=== PATIENT | male | born 1995 | race Caucasian/White ===

== ENCOUNTER 2019-10-29 13:20 | Emergency (ER) | payer MEDICAID, OTHER ==
[~2019-10-29] VITALS: Ht 182.9 cm; Wt 104.5 kg
[2019-10-29 13:22] VITALS: BP 140/94
== END 2019-10-29 15:17 | disposition home or self-care (01) ==
LOC: ER 13:21
DX: F22 Delusional disorders (principal); R56.9 Unspecified convulsions; F17.200 Nicotine dependence, unspecified, uncomplicated
CPT/HCPCS: 99283

== ENCOUNTER 2019-11-01 19:06 | Inpatient (IN) | payer MEDICAID, OTHER ==
[~2019-11-01] VITALS: Ht 188 cm; Wt 116.4 kg
[2019-11-01] MEDS ORDERED: acetaminophen 325mg tablet PO PRN ×2 (21:40)
[2019-11-01] MEDS ORDERED: LORazepam 1 MG tablet PO PRN (21:40)
[2019-11-01] MEDS ORDERED: mag hydrox/Alum hydrox/simeth 30ml oral suspension PO PRN (21:40)
[2019-11-01] MEDS ORDERED: hydrOXYzine 25 MG tablet PO PRN (21:40)
[2019-11-01] MEDS ORDERED: NICOTINE POLACRILEX 2 MG LOZENGE BC PRN (21:40)
--- NOTE | 2019-11-01 21:53 | NUR ---
Admission Note: Pt was placed on 5150 for Grave Disability after he was found running down [facility] fully nude. He stated to the police that he has "schizophrenia and is not taking his medications." He also stated, "I'm being followed by the navy and contractors by frequency waves and satellite waves." Pt was brought from [facility] to [facility] at 2140. Pt was oriented to the unit, given clean scrubs and had his belongings inventoried. Pt's skin check was completed by 2 RN's, pt has blisters bilaterally to bottom of feet.
[2019-11-01 22:10] VITALS: BP 132/96
[2019-11-02 08:00] VITALS: BP 116/61
[2019-11-02] MEDS ORDERED: NO HOME MEDS (10:17)
--- NOTE | 2019-11-02 12:15 | NUR ---
Nursing Progress Note: Legal hold: 5150 Client on involuntary status for GC. Report received from nurse with use of SBAR. Why are they here: Pt was placed on 5150 for Grave Disability after he was found running down [address] [place] fully nude. He stated to the police that he has "schizophrenia and is not taking his medications." He also stated, "I'm being followed by the navy and contractors by frequency waves and satellite waves." Pt was brought from [facility] to [facility] at 2140. Pt was oriented to the unit, given clean scrubs and had his belongings inventoried. Pt's skin check was completed by 2 RN's, pt has blisters bilaterally to bottom of feet. Assessment What has happened this shift: Patient was asleep at change of shift and up for breakfast. Patient stays in his room but is pleasant. RN asked what brought him here to the hospital. Patient states bluntly "nudity". RN asked what he was doing and patient states "making a statement." RN asked what statement was he making and patient couldn't answer that question. Patient denies suicidal/homicidal ideation. Patient also denies hearing voices and denies visual hallucinations. RN asked patient if he takes medication. Patient states "No, it's against my adventist." RN asked patient what was his adventist. Patient states "My body is a holy worship and I don't want medication." Patient took several long naps in his room. S/I, H/I: Denies A/VH: Denies ADL's: Independent Group attendance:N/A Were meds taken: None Any med S/E: None reported or observed Mental Status Exam Appearance: Clean, Large man with messy hair wearing green scrubs. Eye contact: Direct Behavior: Polite, isolative Speech: Clear. Normal rate/volume Mood: Euthymic Affect: flat Thought process: Disorganized Thought Content: Not wanting medication Cognition: disorganized Insight: poor Judgment: poor Interventions PRN's used: None Therapeutic interventions: 1:1 therapeutic assessment, maintained safe therapeutic milieu, provided active listening with positive reinforcement, medication administration/education/monitoring as needed; Q15 safety checks. Restraints/seclusion/emergency medication: N/A Justification of continued inpatient treatment: Patient is unable to formulate a plan to safely meet his basic needs of food, clothing, [place] [facility] r/t his mental health. Patient does not have a good safety plan for discharge at this time.
[2019-11-02 19:30] VITALS: BP 123/63
--- NOTE | 2019-11-03 00:30 | NUR ---
Nursing Progress Note: Legal hold: 5150 for grave disability Client on an involuntary hold for being gravely disabled Report received from Luther SEVILLA with use of SBAR Why are they here: Pt was placed on 5150 for Grave Disability after he was [facility] fully nude. He stated to the police that he has "schizophrenia and is not taking his medications." He also stated, "I'm being followed by the navy and contractors by frequency waves and satellite waves." Assessment What has happened this shift: The patient was isolative to his room and was polite when approached for the evening assessment. The patient stated that he felt mentally "okay" He denies that he has ever been in a psychiatric facility. When asked what his psychiatric diagnosis was he replied, "none" He then stated that people in general are being targeted by sonars then added, "At least a dozen people have me this" He stated that he has been traveling around. 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 Were meds taken: The patient stated he has no intention of taking psychiatric medications. Any med S/E; NA Mental Status Exam Appearance: Appears stated age but disheveled Eye contact: sporadic Behavior: guarded and isolative. Declined to allow RN to listen to his lungs but did answer assessment questions Speech: normal rate and volume Mood: anxious Affect: blunted Thought process: disorganized psychotic thought process Thought Content: delusional thoughts about satellites Cognition: oriented and alert Insight: very poor Judgment: very poor Interventions PRN's used: refused Therapeutic interventions: One to one with the patient to build therapeutic rapport and to assess for the severity of disordered thoughts. Assessed the patient's ability to provide for self care if he were to be discharged from the inpatient unit. Restraints/seclusion/emergency medication: Justification of Continued Inpatient Treatment: The patient is unable to formulate a realistic plan for food, correction or clothing at this time. He presents as being unable to navigate the homeless services provided in the community.
[2019-11-03 08:18] VITALS: BP 138/54
--- NOTE | 2019-11-03 14:30 | NUR ---
Nursing Progress Note: Legal hold: 5150 Client on involuntary status for GC. Report received from nurse with use of SBAR. Why are they here: Pt was placed on 5150 for Grave Disability after he was found running down [address] [place] fully nude. He stated to the police that he has "schizophrenia and is not taking his medications." He also stated, "I'm being followed by the navy and contractors by frequency waves and satellite waves." Pt was brought from [facility] to [facility] at 2140. Pt was oriented to the unit, given clean scrubs and had his belongings inventoried. Pt's skin check was completed by 2 RN's, pt has blisters bilaterally to bottom of feet. Assessment What has happened this shift: Patient was asleep at change of shift and up before breakfast. Patient stays in his room but is pleasant. Patient was found pacing in his room and moving his hand in a circular motion. Patient appears anxious but denies being anxious and does not want any medication. Patient denies suicidal/homicidal ideation. Patient denies hearing voices and spoke about a satellite but didn't elaborate. Patient appeared anxious again in the community room but denied and refused any medication. S/I, H/I: Denies A/VH: Denies ADL's: Independent Group attendance:N/A Were meds taken: None Any med S/E: None reported or observed Mental Status Exam Appearance: Clean, Large man with messy hair wearing green scrubs. Eye contact: Direct Behavior: Polite, isolative Speech: Clear. Normal rate/volume Mood: Euthymic Affect: flat Thought process: Disorganized Thought Content: Not wanting medication Cognition: disorganized with delusional thinking Insight: poor Judgment: poor Interventions PRN's used: None Therapeutic interventions: 1:1 therapeutic assessment, maintained safe therapeutic milieu, provided active listening with positive reinforcement, medication administration/education/monitoring as needed; Q15 safety checks. Restraints/seclusion/emergency medication: N/A Justification of continued inpatient treatment: Patient is unable to formulate a plan to safely meet his basic needs of food, clothing, long-term r/t his mental health. Patient does not have a good safety plan for discharge at this time.
[2019-11-03 19:00] VITALS: BP 141/87
--- NOTE | 2019-11-04 00:29 | NUR ---
Nursing Progress Note: Legal hold: 5150 for grave disability Client on an involuntary hold for being gravely disabled Report received from HUBERT Valenzuela with use of SBAR Why are they here: Pt was placed on 5150 for Grave Disability after he was found running down [facility] fully nude. He stated to the police that he has "schizophrenia and is not taking his medications." He also stated, "I'm being followed by the navy and contractors by frequency waves and satellite waves." Assessment What has happened this shift: Pt was in community room during shift change. Took pictures of pts feet, pictures are in his chart. He has blisters on both feet. He does not report any pain from these. When asked pt where he was getting them from, he states that its from not taking care of his feet. Pt was cooperative during 1:1 physical assessment, although answered questions minimally and not elaborating. Denies any AV/H. When asked if he had anxiety or depression pt denied. However, he did appear to be anxious. When asked if he would take medications if they were ordered he states I dont believe in medications that way. That is just my mosque belief. My body is my amish. He also states that he never took any medications at home. Pt denies any AV/H. Pt continued to pace the isles while making different movements with his arms and hands. He spent some more time in community room before returning to his room and going to sleep. S/I, H/I: Denies A/VH: Denies but pt does appear to be internally preoccupied ADL's: Independent Were meds taken: None taken, pt states he does not believe in taking medications Any med S/E; NA Mental Status Exam Appearance: Wearing green scrubs, somewhat disheveled, feet were dirty from not wearing any socks and walking barefoot on the unit Eye contact: Makes minimal eye contact, averted gaze Behavior: Isolative, guarded, animated with body gestures Speech: normal rate, rhythm and volume, minimal Mood: anxious Affect: blunted Thought process: disorganized Thought Content: Not wanting to take any meds, delusional thoughts Cognition: Alert and oriented X3 Insight: Poor Judgment: Poor Interventions PRN's used: None Therapeutic interventions: One to one with the patient to build therapeutic rapport and to assess for the severity of disordered thoughts. Assessed the patient's ability to provide for self care if he were to be discharged from the inpatient unit. Restraints/seclusion/emergency medication: N/A Justification of Continued Inpatient Treatment: The patient is unable to formulate a realistic plan for food, prison or clothing at this time. He presents as being unable to navigate the homeless services provided in the community.
--- NOTE | 2019-11-04 01:53 | NUR ---
Nursing note: No MRSA swab obtained from pt upon admission. Please obtain one during the day.
[2019-11-04 07:45] VITALS: BP 114/64
--- NOTE | 2019-11-04 12:10 | NUR ---
Initial: Pt admitted with psychosis. Currently on a regular diet documented with 75-100% PO intake meeting nutrient needs. Moderate LBM 11/02. No edema or wounds. No nutrition diagnosis at this time. Will continue to follow. Recommendations: 1) Continue regular diet 2) Bowel care PRN 3) Wt per rx Addendum: 11/04/19 at [address] Amended: Links added.
--- NOTE | 2019-11-04 14:50 | NUR ---
Nursing Progress Note: Legal hold: 5149 for grave disability Client on an involuntary hold for being gravely disabled Report received from HUBERT Holley with use of SBAR Why are they here: Pt was placed on 5150 for Grave Disability after he was found running down [facility] fully nude. He stated to the police that he has "schizophrenia and is not taking his medications." He also stated, "I'm being followed by the navy and contractors by frequency waves and satellite waves." Assessment What has happened this shift: Patient was lying in bed awake upon first interaction. States he is doing okay. When asked why he is here, states The design printer balloon brought me, when asked why he states You would have to ask him. C/O headache and was offered tylenol, replied I dont take medications, I am okay. Cooperative with physical assessment, no scheduled medications ordered at this time. Patient was up in community room, isolating, watching TV. When approached jumped suddenly when called by name. Actually appeared to be frightened, but would not discuss. S/I, H/I: Denies A/VH: Denies Sleep: 6 hours ADL's: Independent Were meds taken: I dont take medications Any med S/E; NA Mental Status Exam Appearance: unkept, wearing unit green scrubs Eye contact: avoidant Behavior: guarding, quiet Speech: WNL Mood: withdrawn Affect: blunted Thought process: difficult to determine, speaks minimally Thought Content: Not wanting to take any meds, denying psychiatric history Cognition: Alert and oriented X3 Insight: Poor Judgment: Poor Interventions PRN's used: None Therapeutic interventions: One to one with the patient to build therapeutic rapport and to assess for the severity of disordered thoughts. Assessed the patient's ability to provide for self care if he were to be discharged from the inpatient unit. Restraints/seclusion/emergency medication: N/A Justification of Continued Inpatient Treatment: The patient is unable to formulate a realistic plan for food, nursing home or clothing at this time. He presents as being unable to navigate the homeless services provided in the community.
--- NOTE | 2019-11-05 00:18 | NUR ---
Nursing Progress Note: Legal hold: 5150 for grave disability Client on an involuntary hold for being gravely disabled Report received from HUBERT Valenzuela with use of SBAR Why are they here: Pt was placed on 5150 for Grave Disability after he was found running down [facility] fully nude. He stated to the police that he has "schizophrenia and is not taking his medications." He also stated, "I'm being followed by the navy and contractors by frequency waves and satellite waves." Assessment What has happened this shift:Pt was in TV room during shift change. Appeared to be calm. Pt requested to take a shower. Cleaned and applied Neosporin to his blisters bilaterally. He denies any symptoms and remained isolative to his room most of the evening. When asked what his plans were he states im just waiting for my paperwork to be completed." Asked pt if he had a place to go to but he states that he doesn't but also denies being homeless. He was cooperative during 1: 1 physical assessment but however does not engage in conversation and answers most questions with a nope Does not elaborate if asked. He continues to make different gestures with his hand as if he is responding to internal stimuli. Later on pt was observed sitting in his bed rocking back and forth. When asked if he was doing okay, he states that he is just hungry. Snack was provided. Will continue to monitor. S/I, H/I: Denies A/VH: Denies but pt does appear to be internally preoccupied ADL's: Independent, Were meds taken: None taken, pt refused all medication offered Any med S/E; NA Mental Status Exam Appearance: Wearing green scrubs, somewhat disheveled. Took a shower today Eye contact: Makes minimal eye contact Behavior: Isolative, guarded, mostly cooperative, does not socialize Speech: normal rate, rhythm and volume, minimal Mood: Appears anxious Affect: blunted Thought process: Circumstantial Thought Content: Not wanting to take any meds, snacks Cognition: Alert and oriented X3 Insight: Poor Judgment: Poor Interventions PRN's used: None Therapeutic interventions: One to one with the patient to build therapeutic rapport and to assess for the severity of disordered thoughts. Assessed the patient's ability to provide for self care if he were to be discharged from the inpatient unit. Restraints/seclusion/emergency medication: N/A Justification of Continued Inpatient Treatment: The patient is unable to formulate a realistic plan for food, [facility] or clothing at this time. He presents as being unable to navigate the homeless services provided in the community.
[2019-11-05 07:22] VITALS: BP 128/77
[2019-11-05 08:37] LABS: HEMOGLOBIN A1C 5.5 % (4.5-6.2)
[2019-11-05 08:52] LABS: CHOL/HDL RATIO 4.6 (0.00-4.99); CHOLESTEROL 158 MG/DL (0-200); HDL CHOLESTEROL 34 MG/DL (35-60); LDL CHOLESTEROL 113 MG/DL (50-100); TRIGLYCERIDES 81 MG/DL (20-135)
--- NOTE | 2019-11-05 17:32 | NUR ---
Nursing Progress Note: Legal hold: 515 for grave disability Client on an involuntary hold for being gravely disabled Report received from HUBERT Willett with use of SBAR Why are they here: Pt was placed on 5150 for Grave Disability after he was found running down [facility] fully nude. He stated to the police that he has "schizophrenia and is not taking his medications." He also stated, "I'm being followed by the navy and contractors by frequency waves and satellite waves." Assessment What has happened this shift: Pt was up at beginning of shift walking the halls. He is quiet and guarded but pleasant. He paced halls and was carrying his book at one point in the sanches reading while he walked. He did not go out to the patio with the group and stated he just didnt feel like it. He denies SI/HI/AH/VH. However he was responding to internal stimuli. He is calm and smiles while he talks with RN during 1:1 but his answers are very quick and short. If questioned further he states I dont know. He showered and placed abx ointment to bilateral feet blisters. He was up in TV room in the afternoon. S/I, H/I: Pt Denies A/VH: Pt Denies but was responding to internal stimuli ADL's: Independent Were meds taken: Pt meds are all PRN, he did not request anything during day shift Any med S/E; None Mental Status Exam Appearance: Took shower on day shift. Wearing green unit scrubs and non skid socks. Hair combed. Eye contact: Direct Behavior: Cooperative, pleasant but isolative. Speech: WNL Mood: Calm but guarded. Affect: Congruent to mood Thought process: Linear Thought Content: Pt does not want to talk. Limited answers. States hes doing fine. Cognition: Alert and oriented X3 Insight: Poor Judgment: Poor Interventions PRN's used: None Therapeutic interventions: One to one with the patient to build therapeutic rapport and to assess for the severity of disordered thoughts. Assessed the patient's ability to provide for self care if he were to be discharged from the inpatient unit. Restraints/seclusion/emergency medication: N/A Justification of Continued Inpatient Treatment: The patient is unable to formulate a realistic plan for food, [place] [facility] or clothing at this time. He presents as being unable to navigate the homeless services provided in the community.
--- NOTE | 2019-11-05 20:17 | NUR ---
REFUSED PM VS.
--- NOTE | 2019-11-06 00:13 | NUR ---
Nursing Progress Note: Legal hold: 5150 for grave disability Client on an involuntary hold for being gravely disabled Report received from HUBERT Valenzuela with use of SBAR Why are they here: Pt was placed on 5150 for Grave Disability after he was found running down [facility] fully nude. He stated to the police that he has "schizophrenia and is not taking his medications." He also stated, "I'm being followed by the navy and contractors by frequency waves and satellite waves." Assessment What has happened this shift: Pt was in TV room during shift change sitting in the corner and stayed here for quite some time. Later on he was observed pacing the halls. Refused to have his vital signs taken by PCT and this RN. He was cooperative for 1:1 physical assessment and allowed for this RN to clean his feet and apply antibiotic ointment. He denies all symptoms even though he appears very anxious and also appears to be responding to internal stimuli. Does not engage in conversation and does not socialize with other patients or staff in the unit. When offered medication for anxiety, pt states no thank you, my body is my restorationist. Pt continues to pace the halls but did ask for a snack before going to sleep. S/I, H/I: Denies A/VH: Denies but pt does appear to be internally preoccupied ADL's: Independent, Were meds taken: None taken, pt refused all medication offered Any med S/E; NA Mental Status Exam Appearance: Wearing green scrubs, somewhat disheveled. Took a shower today Eye contact: Makes minimal eye contact Behavior: Isolative, guarded, mostly cooperative and calm, does not socialize Speech: normal rate, rhythm and volume, minimal. Mood: Appears anxious and somewhat paranoid Affect: Constricted Thought process: Circumstantial Thought Content: Snacks, his feet Cognition: Alert and oriented X3 Insight: Poor Judgment: Poor Interventions PRN's used: None Therapeutic interventions: One to one with the patient to build therapeutic rapport and to assess for the severity of disordered thoughts. Assessed the patient's ability to provide for self care if he were to be discharged from the inpatient unit. Restraints/seclusion/emergency medication: N/A Justification of Continued Inpatient Treatment: The patient is unable to formulate a realistic plan for food, [facility] or clothing at this time. He presents as being unable to navigate the homeless services provided in the community.
[2019-11-06 08:00] VITALS: BP 124/84
--- NOTE | 2019-11-06 15:56 | NUR ---
Nursing Progress Note: Legal hold: 5150 for grave disability Client on an involuntary hold for being gravely disabled Report received from HUBERT Willett with use of SBAR Why are they here: Pt was placed on 5150 for Grave Disability after he was found running down [facility] fully nude. He stated to the police that he has "schizophrenia and is not taking his medications." He also stated, "I'm being followed by the navy and contractors by frequency waves and satellite waves." Assessment What has happened this shift: Pt seen pacing in his room at the start of shift. During one on one assessment encouraged pt to take medications as which time he told this casualty underwriter, per my pt advocate you have no right to discuss medications with me nor do you have the right to advocate for me to take them. Then he proceeded with now can you leave my room? He participated in group by going outside with the others. After lunch and group he went back to his room and laid on the bed for the rest of the shift. S/I, H/I: Denies A/VH: Denies ADL's: Independent Were meds taken: Meds are all PRN he did not request any meds this shift Any med S/E; N/A Mental Status Exam Appearance: Pt is a tall young man wearing green hospital scrubs and non-skid socks Eye contact: Direct Behavior: Cooperative; direct Speech: clear and audible Mood: Guarded Affect: Congruent to mood Thought process: Linear Thought Content: Limited answers Cognition: A/O x 3 Insight: Poor Judgment: Poor Interventions PRN's used: None Therapeutic interventions: Provided therapeutic communication w/active listening, medication education, administration, and monitoring for effects, one to one with the patient to assess severity of thought disorder, and Q15 min. safety checks. Justification of Continued Inpatient Treatment: The patient is unable to formulate a realistic plan for food, jail or clothing at this time. He presents as being unable to navigate the homeless services provided in the community.
[2019-11-06 19:21] VITALS: BP 136/83
--- NOTE | 2019-11-07 00:33 | NUR ---
Nursing Progress Note: Legal hold: 5249 for grave disability Client on an involuntary hold for being gravely disabled Report received from HUBERT Valenzuela with use of SBAR Why are they here: Pt was placed on 5150 for Grave Disability after he was found running down [facility] fully nude. He stated to the police that he has "schizophrenia and is not taking his medications." He also stated, "I'm being followed by the navy and contractors by frequency waves and satellite waves." Assessment What has happened this shift: Pt was pacing the [facility] during shift change, appeared to be internally preoccupied. Pt kept to himself but appeared very tense. Pt requested to take a shower an spent quite some time in there until he was instructed to come out. Pt sounded like he was talking to someone but this RN was not able to make out what he was saying. He was cooperative during 1:1 physical assessment and also agreed for this RN apply antibiotic ointment. When asked if he had any pain in his feet, he states that they actually did hurt pretty bad and states that they have gotten worse since he got here. Offered pt medication for the pain after discussing this might be beneficial for him. He states "maybe I will take something." But then later on changed his mind. When asked pt why he did not want to take any medications, he states "when I was younger I used to have seizures and the doctors gave me some medications and they made me very sick to the point where I almost . And the doctors didn't even care, they just wanted me to take the medications. That's why I don't take anything after that, even if its for my common good." Informed pt that not all medications will do that to him and that he is being monitor here. He still refused. Pt denies A/VH, depression or anxiety. Pt was observed ambulating the [facility] at around 00:00 stating that he was feeling restless. He still refused all meds but eventually he did retired to his room to sleep. S/I, H/I: Denies A/VH: Denies but pt does appear to be internally preoccupied ADL's: Independent, took a shower Were meds taken: None taken, pt refused all medication offered Any med S/E; NA Mental Status Exam Appearance: Wearing green scrubs, somewhat disheveled. Took a shower today Eye contact: Makes minimal eye contact Behavior: Isolative, guarded, mostly cooperative and calm, does not socialize Speech: normal rate, rhythm and volume, minimal. Mood: Appears anxious and some what tense, restless Affect: Blunted Thought process: Circumstantial Thought Content: Snacks, his feet, not wanting to take any meds, not being able to sleep Cognition: Alert and oriented X3 Insight: Poor Judgment: Poor Interventions PRN's used: None Therapeutic interventions: One to one with the patient to build therapeutic rapport and to assess for the severity of disordered thoughts. Assessed the patient's ability to provide for self care if he were to be discharged from the inpatient unit. Restraints/seclusion/emergency medication: N/A Justification of Continued Inpatient Treatment: The patient is unable to formulate a realistic plan for food, intermediate or clothing at this time. He presents as being unable to navigate the homeless services provided in the community.
[2019-11-07 08:00] VITALS: BP 142/114
--- NOTE | 2019-11-07 16:36 | NUR ---
Nursing Progress Note: Legal hold: 5150 Client on an involuntary hold for being gravely disabled Report received from DI Correa with use of SBAR Why are they here: Pt was placed on 5150 for Grave Disability after he was found running down [facility] fully nude. He stated to the police that he has "schizophrenia and is not taking his medications." He also stated, "I'm being followed by the navy and contractors by frequency waves and satellite waves." Assessment What has happened this shift: Pt refused AM med pass and refused AM assessment. He later was seen pacing the halls and pacing in the community room swinging/flapping his arms while moving his lips and at times smiling inappropriately. He later went to court and was placed on a 5250. During the court proceedings he became loud and threatening security was called and he calmed down with redirection. He later went to his room and stayed there the rest of the shift. S/I, H/I: Denies A/VH: Denies: appears to be RIS moving his lips laughs inappropriately ADL's: Independent Were Meds taken: Refused Any med S/E; N/A Mental Status Exam Appearance: Green scrubs w/skid socks Eye contact: Direct Behavior: Angry during court later quiet Speech: Clear, loud and demanding at times Mood: Guarded Affect: Congruent to mood Thought process: Linear Thought Content: Upset about 5250 Cognition: A/O x 3 Insight: Poor Judgment: Poor Interventions PRN's used: None Therapeutic interventions: Attempted to establish therapeutic rapport; encouraged medication compliance and Q15 min safety checks. Justification of Continued Inpatient Treatment: The patient is unable to formulate a realistic plan for food, fpc or clothing at this time. He presents as being unable to navigate the homeless services provided in the community.
[2019-11-07 20:11] VITALS: BP 140/86
--- NOTE | 2019-11-07 23:59 | NUR ---
Nursing Progress Note: Legal hold: 5249 for grave disability Client on an involuntary hold for being gravely disabled Report received from HUBERT Valenzuela with use of SBAR Why are they here: Pt was placed on 5150 for Grave Disability after he was found running down [facility] fully nude. He stated to the police that he has "schizophrenia and is not taking his medications." He also stated, "I'm being followed by the navy and contractors by frequency waves and satellite waves." Assessment What has happened this shift: Pt was seen ambulating the [place], appeared anxious. He made minimal eye contact and was not observed socializing with any of the other patients or staff. He spent some time in the community room pacing and appeared to be responding to internal stimuli. He is still refusing to take any medications offered to him. Pt did request to take a shower. He was cooperative during 1:1 physical assessment but his answers where very short, mostly answering with a ?nope." Denies any A/VH, depression or anxiety. Asked pt if he did not want to talk he states not really, I was in a moment of prayer. Pt was reminded to wear his nonskid socks while in the unit. Continued to pace the [place] during the evening but remained pretty quite. Requested a snack prior to going to sleep. S/I, H/I: Denies A/VH: Denies but pt does appear to be internally preoccupied ADL's: Independent, took a shower Were meds taken: None taken, pt refused all medication offered Any med S/E; NA Mental Status Exam Appearance: Wearing green scrubs, somewhat disheveled. Eye contact: Makes minimal eye contact Behavior: Isolative, guarded, mostly cooperative and calm, does not socialize Speech: normal rate, rhythm and volume, minimal. Mood: Appears anxious and some what tense Affect: Blunted Thought process: Circumstantial Thought Content: Snacks, his feet, conversation is minimal, confucianism oriented Cognition: Alert and oriented X3 Insight: Poor Judgment: Poor Interventions PRN's used: None Therapeutic interventions: One to one with the patient to build therapeutic rapport and to assess for the severity of disordered thoughts. Assessed the patient's ability to provide for self care if he were to be discharged from the inpatient unit. Restraints/seclusion/emergency medication: N/A Justification of Continued Inpatient Treatment: The patient is unable to formulate a realistic plan for food, senior care or clothing at this time. He presents as being unable to navigate the homeless services provided in the community.
[2019-11-08 08:00] VITALS: BP 107/55
--- NOTE | 2019-11-08 11:25 | NUR ---
Nursing Progress Note: Legal hold: 5150 Client on an involuntary hold for being gravely disabled Report received from DI Correa with use of SBAR Why are they here: Pt was placed on 5150 for Grave Disability after he was found running down [address] fully nude. He stated to the police that he has "schizophrenia and is not taking his medications." He also stated, "I'm being followed by the navy and contractors by frequency waves and satellite waves." Assessment What has happened this shift: Patient is resting in bed peacefully at change of shift. He is quiet but answers questions appropriately. He does not offer any extra information and only answers with one to two word responses. He appears to be internally preoccupied at times with facial expression as if he is in deep thought. He is seen moving his lips often and taking to people who are not there. He did not have any medication ordered this morning. He has not had any PRN medications. He is seen pacing in the hallway and does not make eye contact frequently. He does not interact with peers or staff unless directly spoken to. S/I, H/I: Denies A/VH: Denies: appears to be responding to internal stimuli, moving his lips, laughs inappropriately ADL's: Independent Were Meds taken: Refused Any med S/E; N/A Mental Status Exam Appearance: Green scrubs w/skid socks Eye contact: avoidant at times, sometimes direct Behavior: quiet, isolative Speech: Clear, minimal Mood: Guarded Affect: Congruent to mood Thought process: Linear Thought Content: would not share, stated he didn't want to talk about it. Cognition: A/O x 3 Insight: Poor Judgment: Poor Interventions PRN's used: None Therapeutic interventions: Attempted to establish therapeutic rapport; encouraged medication compliance and Q15 min safety checks, active listening and therapeutic pause. Justification of Continued Inpatient Treatment: The patient is unable to formulate a realistic plan for food, detention or clothing at this time. He presents as being unable to navigate the homeless services provided in the community.
--- NOTE | 2019-11-08 12:30 | NUR ---
RN assumed care of patient Addendum: 11/08/19 at 1728 by Jeremías Mccormick RN Pt. seen pacing often in the afternoon. Pt. went outside on patio and tolerated well. Pt. reports he is glad he went outside. Pt. appears internally preoccupied but denies AH/VH.
[2019-11-08 19:46] VITALS: BP 120/76
--- NOTE | 2019-11-08 23:26 | NUR ---
Nursing Progress Note: Legal hold: 5249 for GD Report received from HUBERT Valenzuela with use of SBAR Why are they here: Pt was placed on 5150 for Grave Disability after he was found running down [facility] fully nude. He stated to the police that he has "schizophrenia and is not taking his medications." He also stated, "I'm being followed by the navy and contractors by frequency waves and satellite waves." Assessment What has happened this shift: Pt observed to be pacing the halls, appearing restless. Pt is making gestures with hands. Later in the shift, pt is rocking forward and back in a chair while watching TV. Pt seems to be responding IS, but denies all signs and symptoms, stating "I've never had any problem like that. I've never heard voices." Pt states he's been in hospital before but not for anything related to mental health; pt unable to elaborate on why he was hospitalized and became upset stating he was done with questions and walked away. Pt cooperative with some of physical assessment and vitals. Later in the evening, RN approached pt to resume conversation. Pt states he doesn't have "any family. No. None." He is unable to tell this RN why his is here "I don't know, the police brought me. Look at the report." Pt refused medications this evening, stating "No, I don't take anything. I won't take it" but requested a snack "to help me sleep." Pt informed that he would need to attempt to sleep, and that the unit does not allow pts to pace the halls all night because sleep is important. Pt replied "that isn't in the unit rules, so basically that means it's just made up by any nurse. Edilberto" and retired to his room. S/I, H/I: Denies A/VH: Denies but observed to be responding to IS ADL's: Independent Groups: N/A Were meds taken: No, pt refused all medication offered; Pt is to be Riesed per shift report Any med S/E: N/A Mental Status Exam Appearance: Wearing green scrubs, somewhat disheveled, refused to wear nonskid socks Eye contact: Fair Behavior: Guarded, Paces halls, does not interact with peers Speech: Clear, Minimal Mood: "Fine", Appears restless Affect: Flat Thought process: Linear for questions asked, but pt provided only minimal answers to direct questions Thought Content: Snacks, "never had a problem" Cognition: A&Ox3 (off for circumstance) Insight: Poor Judgment: Poor Interventions PRN's used: None Therapeutic interventions: 1:1 assessment to establish rapport and gain understanding of pt's thoughts and support system, physical assessment, Offered medications Restraints/seclusion/emergency medication: N/A Justification of Continued Inpatient Treatment: The patient is unable to formulate a realistic plan for food, halfway or clothing at this time. Pt does not believe he is experiencing a crisis r/t to his thought disorder. He presents as being unable to navigate the homeless services provided in the community. Addendum: 11/09/19 at 0031 by Beatrice Rincon RN Bed scale weight obtained; Pt went from 104 kg to 116 kg in a week - recheck on standing scale in morning or tomorrow night.
[2019-11-09 08:25] VITALS: BP 122/52
--- NOTE | 2019-11-09 17:00 | NUR ---
Nursing Progress Note: Legal hold: 5250 for GD Report received from DI Hurt with use of SBAR Why are they here: Pt was placed on 5150 for Grave Disability after he was found running down [address] fully nude. He stated to the police that he has "schizophrenia and is not taking his medications." He also stated, "I'm being followed by the navy and contractors by frequency waves and satellite waves." Pt believed that running down the street nude was not an issue. Assessment What has happened this shift: Pt observed to be pacing the halls, appearing restless. Pt seems to be responding IS, but denies all signs and symptoms. Pt cooperative with some of physical assessment and vitals. S/I, H/I: Denies A/VH: Denies but observed to be responding to IS ADL's: Independent Groups: N/A Were meds taken: No, pt refused all medication offered Any med S/E: N/A Mental Status Exam Appearance: took a shower Eye contact: Fair Behavior: Guarded, Paces halls, does not interact with peers Speech: Clear, Minimal Mood: "Fine", Appears restless Affect: Flat Thought process: Linear for questions asked, but pt provided only minimal answers to direct questions Thought Content: Snacks Cognition: A&Ox3 (off for circumstance) Insight: Poor Judgment: Poor Interventions PRN's used: None Therapeutic interventions: 1:1 assessment to establish rapport and gain understanding of pt's thoughts and support system, physical assessment, Offered medications Blisters noted to bilateral feet. Blister on right foot cleansed and bandaged and socks applied. pt appears to not like wearing socks. Restraints/seclusion/emergency medication: N/A Justification of Continued Inpatient Treatment: The patient is unable to formulate a realistic plan for food, [place] [facility] or clothing at this time. Pt does not believe he is experiencing a crisis r/t to his thought disorder. He presents as being unable to navigate the homeless services provided in the community.
[2019-11-09 20:00] VITALS: BP 127/77
--- NOTE | 2019-11-09 22:19 | NUR ---
Nursing Progress Note: Legal hold: 5249 for GD Report received from HUBERT Sloan with use of SBAR Why are they here: Pt was placed on 5150 for Grave Disability after he was found running down [facility] fully nude. He stated to the police that he has "schizophrenia and is not taking his medications." He also stated, "I'm being followed by the navy and contractors by frequency waves and satellite waves." Assessment What has happened this shift: Pt observed to be pacing the halls, appearing restless. Pt is making gestures with hands. Pt requested toiletries, clean scrubs, and to shower early in the shift. Pt seems to be responding IS, but denies all signs and symptoms. Pt requested this RN reach out to his brother, Jayden, via Facebook but RN stated that wasn't possible but a phone call could be made. Pt states he doesn't know his number and "never mind". Pt cooperative with some of physical assessment and vitals. Pt retired to his room to sleep after pacing the halls post snack. S/I, H/I: Denies A/VH: Denies but observed to be responding to IS ADL's: Independent Groups: N/A Were meds taken: No, pt refused all medication offered; Pt is to be Riese filed 11/08 awaiting hearing date Any med S/E: N/A Mental Status Exam Appearance: clean, wearing green scrubs and personal sweater, nonskid socks Eye contact: Fair Behavior: Guarded, Paces halls, does not interact with peers, took a shower Speech: Clear, Minimal Mood: "Fine", Appears restless Affect: Flat Thought process: Linear for questions asked, but pt provided only minimal answers to direct questions Thought Content: wanting to shower and contact his brother Jayden on [address] [employer] Cognition: A&Ox3 (off for circumstance) Insight: Poor Judgment: Poor Interventions PRN's used: None Therapeutic interventions: 1:1 assessment to establish rapport and gain understanding of pt's thoughts and support system, physical assessment, Offered medications Restraints/seclusion/emergency medication: N/A Justification of Continued Inpatient Treatment: The patient is unable to formulate a realistic plan for food, senior care or clothing at this time. Pt does not believe he is experiencing a crisis r/t to his thought disorder. He presents as being unable to navigate the homeless services provided in the community.
--- NOTE | 2019-11-10 12:24 | NUR ---
Nursing Progress Note: Legal hold: 525 for GD Report received from RN with use of SBAR Why are they here: Pt was placed on 5150 for Grave Disability after he was found running down [address] fully nude. He stated to the police that he has "schizophrenia and is not taking his medications." He also stated, "I'm being followed by the navy and contractors by frequency waves and satellite waves." Pt believed that running down the street nude was not an issue. Assessment What has happened this shift: Received Pt in bed sleeping w/o distress at change of shift. Pt refused vitals and responded minimally to assessment questions. Pt out of bed and pacing halls or in community room. He is interested in food and TV, otherwise he is not interested ion communicating with staff or others and refuses medication. S/I, H/I: Denies A/VH: Denies but observed to be responding to IS ADL's: Independent Groups: N/A Were meds taken: No Any med S/E: N/A Mental Status Exam Appearance: Casual Eye contact: Fair Behavior: Guarded, Paces halls, does not interact with peers Speech: Clear, Minimal Mood: "I'm OK" Affect: Flat Thought process: Linear Thought Content: TV and Snacks Cognition: A&Ox3 (not circumstance) Insight: Poor Judgment: Poor Interventions PRN's used: None Therapeutic interventions: 1:1 assessment to establish rapport and gain understanding of pt's thoughts and support system, physical assessment, Offered medications Blisters noted to bilateral feet. Blister on right foot cleansed and bandaged and socks applied. pt appears to not like wearing socks. Restraints/seclusion/emergency medication: N/A Justification of Continued Inpatient Treatment: The patient is unable to formulate a realistic plan for food, nursing home or clothing at this time. Pt does not believe he is experiencing a crisis r/t to his thought disorder. He presents as being unable to navigate the homeless services provided in the community.
--- NOTE | 2019-11-10 13:59 | NUR ---
Reassessment: Pt PO 100% avg regular diet meeting needs. LBM 11/09. AOx3 wont take medications per EMR w/ all current meds PRN not given at this time. No nutrition concerns at this time. Will continue to monitor. Recommendations: 1) Continue regular diet 2) Bowel care PRN 3) Wt per rx Addendum: 11/10/19 at [address] Amended: Links added.
[2019-11-10 19:00] VITALS: BP 134/82
--- NOTE | 2019-11-11 01:04 | NUR ---
Nursing Progress Note: Legal hold: 5249 for GD Report received from DI Fierro with use of SBAR Why are they here: Pt was placed on 5150 for Grave Disability after he was found running down [facility] fully nude. He stated to the police that he has "schizophrenia and is not taking his medications." He also stated, "I'm being followed by the navy and contractors by frequency waves and satellite waves." Assessment What has happened this shift: Pt observed to be pacing the halls, appearing restless. Pt is making gestures with hands. Pt seems to be responding IS, but denies all signs and symptoms. Pt becomes agitated with the mental health assessment and eye contact becomes intense. Pt cooperative with some of physical assessment and vitals. Pt retired to his room to sleep after pacing the halls post snack. S/I, H/I: Denies A/VH: Denies but observed to be responding to IS ADL's: Independent Groups: N/A Were meds taken: No, pt refused all medication offered; Pt Justyna filed 11/08 awaiting hearing date Any med S/E: N/A Mental Status Exam Appearance: clean, wearing green scrubs and personal sweater, nonskid socks Eye contact: Fair Behavior: Guarded, Paces halls, does not interact with peers Speech: Clear, Minimal Mood: "Good", Appears restless Affect: Flat Thought process: Linear for questions asked, but pt provided only minimal answers to direct questions Thought Content: wanting a snack Cognition: A&Ox3 (off for circumstance) Insight: Poor Judgment: Poor Interventions PRN's used: None Therapeutic interventions: 1:1 assessment to establish rapport and gain understanding of pt's thoughts and support system, physical assessment, Offered medications Restraints/seclusion/emergency medication: N/A Justification of Continued Inpatient Treatment: The patient is unable to formulate a realistic plan for food, prison or clothing at this time. Pt does not believe he is experiencing a crisis r/t to his thought disorder. He presents as being unable to navigate the homeless services provided in the community.
--- NOTE | 2019-11-11 13:04 | NUR ---
DISCHARGE PLANNING Met with Burt to discuss discharge planning. He had just eaten lunch. He was wearing green scrubs and his hair was messy and unkempt. Speech was rapid and pressured. He exhibited flight of ideas. He was delusional and appeared to lack understanding that he is currently on an involuntary hold. 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 He reported he was scared because things were closing down due to Cornoavirus and he fled [place]. He reported he did not know where he was going. He reported he had been living in his car and is aware that his car has been impounded and that he does not have enough money to get it out. He asked for a bus ticket and a cell phone. He stated he may want to go to [place], "I have friends there". He made paranoid and delusional statements about his income tax return being "syphoned" from "them". He talked about people living under ground and asked mortgage or loan underwriter whether or not she believes that. He kept referring to "they" being after him. He reported he is here at the hospital voluntarily and that when he is ready to leave he will just walk out. He told mortgage or loan underwriter she could contact his brother, Jayden, however, he does not know his phone number. He reported his mother is "mentally disabled", however, did not know her diagnosis. He reported he grew up in foster care and would not elaborate. When asked where he would go upon discharge he was unable to state a viable plan for food, clothing, or usp. He requested a bus ticket again, but could not give a destination. He does not have any money currently or any source of income. At this time Burt is still gravely disabled. JESUS ALBERTO Gallo
--- NOTE | 2019-11-11 14:17 | NUR ---
Nursing Progress Note: Legal hold: 5249 for GD Report received from Leydi GASPAR with use of SBAR Why are they here: Pt was placed on 5150 for Grave Disability after he was found running down [facility] fully nude. He stated to the police that he has "schizophrenia and is not taking his medications." He also stated, "I'm being followed by the navy and contractors by frequency waves and satellite waves." Assessment What has happened this shift: Patient was in room having breakfast when first approached by this staff writer. When asked about whether he wanted to take his medications, he became very agitated stating It is my right not to take medications if I dont want to, I shouldnt have to explain this everyday! Was compliant with physical assessment, refused VS. Denies that he has any type of mental illness. Will not discuss events which led to him being placed on unit. Remains avoidant, anxious. Observed responding to internal stimuli, though denies any symptoms. Observed pacing in hallway throughout the afternoon, appears to be distracted, responding to internal stimuli. Facial expressions appear to be angry. According to provider, he wishes to be discharged with a bus ticket to [facility] and states he will obtain food from food [employer]. Admits he does not have his ID, unable to get his vehicle, or tax refund. He has refused previously to meet with BRYAN Joseph and when asked if he will talk with her responds she knows where I am at. S/I, H/I: Denies A/VH: Denies but observed to be responding to IS Sleep: 5 hours ADL's: Independent Groups: N/A Were meds taken: Continues to refuse, awaiting Reise hearing date Any med S/E: N/A Mental Status Exam Appearance: Well groomed, wearing green scrubs Eye contact: Avoidant, intense Behavior: anxious, guarded Speech: Clear, Minimal Mood: Agitated Affect: Constricted Thought process: Linear for questions asked, but pt provided only minimal answers to direct questions Thought Content: Patients rights and feels his are being violated Cognition: A&Ox3 (off for circumstance) Insight: Poor Judgment: Poor Interventions PRN's used: None Therapeutic interventions: 1:1 assessment to establish rapport and gain understanding of pt's thoughts and support system, physical assessment, Offered medications Restraints/seclusion/emergency medication: N/A Justification of Continued Inpatient Treatment: The patient is unable to formulate a realistic plan for food, longterm or clothing at this time. Pt does not believe he is experiencing a crisis r/t to his thought disorder. He presents as being unable to navigate the homeless services provided in the community.
[2019-11-11 20:00] VITALS: BP 135/87
[2019-11-11] MEDS: OLANZapine 5mg rapidly disint. tablet PO SCH (21:00)
--- NOTE | 2019-11-12 01:28 | NUR ---
Nursing Progress Note: Legal hold: 5249 Client on involuntary status for GD Report received from nurse with use of SBAR: DI Fernandez Why are they here: Pt was placed on 5150 for Grave Disability after he was found running down [facility] fully nude. He stated to the police that he has "schizophrenia and is not taking his medications." He also stated, "I'm being followed by the navy and contractors by frequency waves and satellite waves." Assessment What has happened this shift: Pt. taking a shower at the beginning of the shift, able to complete this task independently, however continues to require some direction from staff to complete some ADLs r/t grave disability. Pt. later up in Recreation Room watching TV, and appears internally preoccupied AEB observed to be talking to himself at times. Pt. is also observed to be continuously moving his extremities and rocking back and fourth when sitting in a chair. He presents as restless, guarded, paranoid, withdrawn, and does not interact with others. Pt. is compliant with V/S and physical assessment this shift. This caption writer attempted to complete 1:1, however pt. denies all mental health s/s and will minimally respond to questions with 1-2 word answers and avoidance. Attempted to provide medication education (printout) and administer Zyprexa Zydis at HS. Pt. became agitated and the volume of his voice increased, he stated, "My body is a shinto and I don't take medication! I already mentioned this to the accountant supervisor eight times, and it's harassment and a violation of my patient rights! I can show you!" This caption writer was able to redirect patient, and offered to review the written medication education printout regarding Zyprexa Zydis with him. Pt. refused and stated, "You can throw that in the garbage!" However, he then took it from this caption writer's hand and proceeded to read the medication handout himself. Pt. remained calm and able to redirected as needed the rest of the shift, will continue to monitor. S/I, H/I: Denies A/VH: Denies, appears internally preoccupied AEB observed to be talking to himself at times Sleep: Pt. reports he has been sleeping well ADL's: Requires redirection from staff at times Group attendance: N/A Were meds taken: Pt. refused ordered Zyprexa Zydis at HS Any med S/E: N/A Mental Status Exam Appearance: Appears slightly disheveled, tenorio scruffy. Appropriately dressed. Eye contact: Avoidant Behavior: Resistive to care, restless, slightly agitated at times, guarded, and withdrawn Speech: Soft, responds with minimal 1-2 word answers to questions. Pt's speech becomes agitated and louder when questioned regarding any mental health issues or medications. Mood: Guarded and restless Affect: Constricted Thought process: Circumstantial with poverty of thought Thought Content: Possible A/V/BENDER and ongoing paranoid delusions Cognition: A&O X3 (not to why here) Insight: Poor Judgment: Poor Interventions PRN's used: None Therapeutic interventions: Introduced self and attempted to establish rapport, ensured contract for safety, maintained a safe and therapeutic environment, provided clear and simple instructions, attempted to reorient to reality, monitored behavior and need for intervention, provided medication education, encouraged independent performance of ADLs and provided redirection as needed, and maintained Q 15 min safety checks. Restraints/seclusion/emergency medication: N/A Justification of Continued Inpatient Treatment: Per TORI Montgomery, pt. remains gravely disabled r/t the severity of his mental illness. A Riese will be filed.
[2019-11-12 07:48] VITALS: BP 106/64
--- NOTE | 2019-11-12 16:20 | NUR ---
Nursing Progress Note: Burt Aldana Legal hold: 5250 Client on involuntary status for GD Report received from DI Rebollar with use of SBAR Why are they here: Pt was placed on 5150 for Grave Disability after he was found running down [address] [place] fully nude. He stated to the police that he has "schizophrenia and is not taking his medications." He also stated, "I'm being followed by the navy and contractors by frequency waves and satellite waves." Assessment What has happened this shift: Patient was awake, ambulating in hallway. Was pleasant on initial interaction. Refused medications. Denies any symptoms of mental illness but is observed responding to internal stimuli, appearing paranoid, and isolative. Agreed to shower today, initially presenting in dirty sweat pants, and disheveled. Took a shower however, remained in same clothing. Out of room more, observed ambulating frequently in the hallway but remains isolative with minimal to no interaction. S/I, H/I: Denies A/VH: Appears distracted by internal stimuli, but denies any symptoms. Sleep: 6.75 ADL's: Needs encouragement, did shower today Group attendance: No structured groups due to COVID-19 Were meds taken: Pt. refused all medications Any med S/E: N/A Mental Status Exam Appearance: messy hair, dirty sweat pants, scruffy tenorio Eye contact: avoids eye contact Behavior: Guarded, isolative, paranoid Speech: Soft, responds minimally to questions, Mood: Paranoid, withdrawn Affect: Blunted Thought process: Circumstantial with poverty of thought Thought Content: Possible A/V/BENDER and ongoing paranoid delusions Cognition: A&O X3 (not to why here) Insight: Poor Judgment: Poor Interventions PRN's used: None Therapeutic interventions: Introduced self and attempted to establish rapport, ensured contract for safety, maintained a safe and therapeutic environment, provided clear and simple instructions, attempted to reorient to reality, monitored behavior and need for intervention, provided medication education, encouraged independent performance of ADLs and provided redirection as needed, and maintained Q 15 min safety checks. Restraints/seclusion/emergency medication: N/A Justification of Continued Inpatient Treatment: Per TORI Montgomery, pt. remains gravely disabled r/t the severity of his mental illness. A Riese will be filed.
[2019-11-12 19:00] VITALS: BP 127/78
[2019-11-12] MEDS: OLANZapine 5mg rapidly disint. tablet PO SCH (21:00)
--- NOTE | 2019-11-13 00:02 | NUR ---
Nursing Progress Note: Legal hold: 525 Client on involuntary status for GD Report received from nurse with use of SBAR: DI Fernandez Why are they here: Pt was placed on 5150 for Grave Disability after he was found running down [facility] fully nude. He stated to the police that he has "schizophrenia and is not taking his medications." He also stated, "I'm being followed by the navy and contractors by frequency waves and satellite waves." Assessment What has happened this shift: Pt. up pacing in the hallway throughout most of the shift, later requested to take a shower and remained in the shower for a very long time. Pt. required redirection from staff in order to limit his shower time, he continues to require some direction from staff to complete some ADLs r/t grave disability. Pt. continues to present as resistive to care, restless, slightly agitated at times, guarded, and withdrawn. He mostly avoids eye contact, and was very reluctant to complete MH assessment with this life insurance underwriter. Pt. denies all MH s/s, states, "I'm fine." However, he continues to appear internally preoccupied AEB observed to be talking to himself at times. Pt. is again observed to be continuously moving his extremities and rocking back and fourth when sitting in a chair. Again attempted to administer and provide education regarding ordered Zyprexa Zydis at . When this life insurance underwriter asked pt. if he would take his mediation, pt. again became agitated and stated, "I'm not going to justify that question with an answer!" He then goes on to talk in a paranoid manner about how he believes doctors only prescribe psychiatric medications so they can get a kick-back from pharmaceutical companies. This life insurance underwriter asked pt. if he has ever taken any medications and he stated, "No!" However, he later admits that he used to take Adderall for ADHD and it did help him to focus. When this life insurance underwriter asked pt. if he would consider taking medication again, he stated, "I don't know. I'd have to pray on it." S/I, H/I: Denies A/VH: Denies, appears internally preoccupied AEB observed to be talking to himself at times Sleep: Pt. reports he has been sleeping well, however exhibits some restlessness at HS AEB pacing ADL's: Requires redirection from staff at times Group attendance: N/A Were meds taken: Pt. refused ordered Zyprexa Zydis at HS Any med S/E: N/A Mental Status Exam Appearance: Appears slightly disheveled, tenorio scruffy. Appropriately dressed. Eye contact: Avoidant Behavior: Resistive to care, restless, slightly agitated at times, guarded, and withdrawn Speech: Soft, responds with minimal 1-2 word answers to questions. Pt's speech becomes agitated and louder when questioned regarding any mental health issues or medications. Mood: Guarded and restless Affect: Constricted Thought process: Circumstantial with poverty of thought Thought Content: Possible A/V/BENDER and ongoing paranoid delusions Cognition: A&O X3 (not to why here) Insight: Poor Judgment: Poor Interventions PRN's used: None Therapeutic interventions: Ensured contract for safety, maintained a safe and therapeutic environment, provided clear and simple instructions, attempted to reorient to reality, monitored behavior and need for intervention, provided medication education, encouraged independent performance of ADLs and provided redirection as needed, and maintained Q 15 min safety checks. Restraints/seclusion/emergency medication: N/A Justification of Continued Inpatient Treatment: TORI Sandhu, pt. remains gravely disabled r/t the severity of his mental illness. A Riese will be filed.
[2019-11-13 08:00] VITALS: BP 131/87
[2019-11-13 08:06] VITALS: BP 131/87
--- NOTE | 2019-11-13 13:12 | NUR ---
FAMILY CONTACT INFORMATION: Brother Jayden Aldana [phone]
[2019-11-13] MEDS ORDERED: LORazepam 2 mg/ml vial ONE (14:57)
[2019-11-13] MEDS ORDERED: haloperidol lactate 5mg/ml inj ONE (14:58)
[2019-11-13] MEDS ORDERED: diphenhydrAMINE 50 mg/ml inj ONE (14:58)
[2019-11-13 20:00] VITALS: BP 103/65
[2019-11-13] MEDS: OLANZapine 5mg rapidly disint. tablet PO SCH (21:00)
--- NOTE | 2019-11-14 01:27 | NUR ---
Nursing Progress Note: Burt Legal hold: 5250 Client on involuntary status for GD Report received from DI Bryant With use of SBAR Why are they here: Pt was placed on 5150 for Grave Disability after he was found running down [facility] fully nude. He stated to the police that he has "schizophrenia and is not taking his medications." He also stated, "I'm being followed by the navy and contractors by frequency waves and satellite waves." Assessment What has happened this shift: Patient in bed asleep at the start of the shift with a sitter out side of the room. Pt was given a B52 at 1500 for an awal attempt and has slept most of the shift. Pt brother called and stated that he will be the one to transport him back to [place] when he is discharged. S/I, H/I: Denies A/VH: Denies, appears internally preoccupied AEB observed to be talking to himself at times Sleep: 6 ADL's: Needs encouragement, showered yesterday Group attendance: No groups related to COVID-19 Were meds taken: NO Any med S/E: N/A Mental Status Exam Appearance: Appears slightly disheveled, tenorio scruffy. Appropriately dressed. Eye contact: Avoidant Behavior: Resistive to care, restless, slightly agitated at times, guarded, and withdrawn Speech: Soft, responds with minimal 1-2 word answers to questions. Pt's speech becomes agitated and louder when questioned regarding any mental health issues or medications. Mood: Guarded and restless Affect: Constricted Thought process: Circumstantial with poverty of thought Thought Content: Possible A/V/BENDER and ongoing paranoid delusions Cognition: A&O X3 (not to why here) Insight: Poor Judgment: Poor Interventions PRN's used: none Therapeutic interventions: Ensured contract for safety, maintained a safe and therapeutic environment, provided clear and simple instructions, attempted to reorient to reality, monitored behavior and need for intervention, provided medication education, encouraged independent performance of ADLs and provided redirection as needed, and maintained Q 15 min safety checks. Restraints/seclusion/emergency medication: 11/12 At 1505 patient was placed in restraints and chemically sedated. Justification of Continued Inpatient Treatment: Per TORI Montgomery, pt. remains gravely disabled r/t the severity of his mental illness. A Riese will be filed.
[2019-11-14 08:00] VITALS: BP 115/60
--- NOTE | 2019-11-14 17:50 | NUR ---
Nursing Progress Note: Burt Legal hold: 525 Client on involuntary status for GD Report received from DI Bryant With use of SBAR Why are they here: Pt was placed on 5150 for Grave Disability after he was found running down [address] [place] fully nude. He stated to the police that he has "schizophrenia and is not taking his medications." He also stated, "I'm being followed by the navy and contractors by frequency waves and satellite waves." Assessment What has happened this shift: Ambulating in hallway, preoccupied with internal stimuli. Cooperative with physical assessment but avoids all questions related to MH assessment. Pleasant with surface conversation. 1500 patient became very agitated and attempted to leave the unit through stairwell door. Required security to force down to floor. Continued to be combative and was assisted to bed via 5-6 security guards. Attempted a second time to get off of bed and was immediately restrained and placed in 4 point restraints for patient and staff safety. Chemical restraint ordered and administered. Offered patient water which he accepted, Continues to perseverate on patient rights and that he is being held against his will. This behavior escalated following a conversation with his brother Jayden, whos number is listed in the notes. Right arm released after 15 minutes to allow him to hold his book to read, patient then fell asleep. Staff remained in room with patient for safety. LLE released within 30 minutes, patient turned to side and continues to sleep. S/I, H/I: Denies A/VH: Denies, appears internally preoccupied AEB observed to be talking to himself at times Sleep: 6 ADL's: Needs encouragement, showered yesterday Group attendance: No groups related to COVID-19 Were meds taken: NO Any med S/E: N/A Mental Status Exam Appearance: Appears slightly disheveled, tenorio scruffy. Appropriately dressed. Eye contact: Avoidant Behavior: Resistive to care, restless, slightly agitated at times, guarded, and withdrawn Speech: Soft, responds with minimal 1-2 word answers to questions. Pt's speech becomes agitated and louder when questioned regarding any mental health issues or medications. Mood: Guarded and restless Affect: Constricted Thought process: Circumstantial with poverty of thought Thought Content: Possible A/V/BENDER and ongoing paranoid delusions Cognition: A&O X3 (not to why here) Insight: Poor Judgment: Poor Interventions PRN's used: B52 Therapeutic interventions: Ensured contract for safety, maintained a safe and therapeutic environment, provided clear and simple instructions, attempted to reorient to reality, monitored behavior and need for intervention, provided medication education, encouraged independent performance of ADLs and provided redirection as needed, and maintained Q 15 min safety checks. Restraints/seclusion/emergency medication: 11/12 At 1505 patient was placed in restraints and chemically sedated. Justification of Continued Inpatient Treatment: Per TORI Montgomery, pt. remains gravely disabled r/t the severity of his mental illness. A Riese will be filed. Addendum: 11/14/19 at 7094 by Adrianna Cordero RN kiarrao
--- NOTE | 2019-11-14 17:51 | NUR ---
Nursing Progress Note: Burt Legal hold: 5250 Client on involuntary status for GD Report received from DI Bryant With use of SBAR Why are they here: Pt was placed on 5150 for Grave Disability after he was found running down [address] [place] fully nude. He stated to the police that he has "schizophrenia and is not taking his medications." He also stated, "I'm being followed by the navy and contractors by frequency waves and satellite waves." Assessment What has happened this shift: Patient was asleep at change of shift and up for breakfast. Patient is very reserved and hardly spoke to RN today. Patient denies suicidal/homicidal ideation. Patient states he is doing fine. Patient answered most my questions with his hands. Thumbs up, thumbs down. Patient walks the halls and appears to be responding to internal stimuli but denies with a hand motion when asked. Patient did say he is just here waiting for his brother to come pick him up from [place]. S/I, H/I: Denies A/VH: Denies, appears to be responding to internal stimuli. Sleep: several naps today ADL's: Needs encouragement Group attendance: No groups related to COVID-19 Were meds taken: None ordered Any med S/E: N/A Mental Status Exam Appearance: Appears slightly disheveled, tenorio scruffy. Appropriately dressed. Eye contact: Poor Behavior: Resistive to care, guarded, and withdrawn Speech: Soft, responds with minimal 1-2 word answers to questions or answers with hand motions. Mood: Guarded Affect: Constricted Thought process: Circumstantial with poverty of thought Thought Content: Probably ongoing paranoid delusions Cognition: A&O X3 (not to why here) Insight: Poor Judgment: Poor Interventions PRN's used: None Therapeutic interventions: Ensured contract for safety, maintained a safe and therapeutic environment, provided clear and simple instructions, attempted to reorient to reality, monitored behavior and need for intervention, provided medication education, encouraged independent performance of ADLs and provided redirection as needed, and maintained Q 15 min safety checks. Restraints/seclusion/emergency medication: 11/12 At 1505 patient was placed in restraints and chemically sedated. Justification of Continued Inpatient Treatment: Per TORI Montgomery, pt. remains gravely disabled r/t the severity of his mental illness. A Riese will be filed.
[2019-11-14 20:00] VITALS: BP 131/87
[2019-11-14] MEDS: OLANZapine 5mg rapidly disint. tablet PO SCH (21:00)
--- NOTE | 2019-11-14 23:40 | NUR ---
Nursing Progress Note: Burt Legal hold: 525 Client on involuntary status for GD Report received from DI Fernandez With use of SBAR Why are they here: Pt was placed on 5150 for Grave Disability after he was found running down [facility] fully nude. He stated to the police that he has "schizophrenia and is not taking his medications." He also stated, "I'm being followed by the navy and contractors by frequency waves and satellite waves." Assessment What has happened this shift: Patient up in sanches and asked for a shower which staff helped him with. After shower pt continued to walk the sanches attempted to interview pt but only answer I received was I'm ok. Pt went to bed shortly after that. S/I, H/I: Denies A/VH: Denies, appears to be responding to internal stimuli. Sleep: several naps today ADL's: Needs encouragement Group attendance: No groups related to COVID-19 Were meds taken: None ordered Any med S/E: N/A Mental Status Exam Appearance: Appears slightly disheveled, tenorio scruffy. Appropriately dressed. Eye contact: Poor Behavior: Resistive to care, guarded, and withdrawn Speech: Soft, responds with minimal 1-2 word answers to questions or answers with hand motions. Mood: Guarded Affect: Constricted Thought process: Circumstantial with poverty of thought Thought Content: Probably ongoing paranoid delusions Cognition: A&O X3 (not to why here) Insight: Poor Judgment: Poor Interventions PRN's used: None Therapeutic interventions: Ensured contract for safety, maintained a safe and therapeutic environment, provided clear and simple instructions, attempted to reorient to reality, monitored behavior and need for intervention, provided medication education, encouraged independent performance of ADLs and provided redirection as needed, and maintained Q 15 min safety checks. Restraints/seclusion/emergency medication: 11/12 At 1505 patient was placed in restraints and chemically sedated. Justification of Continued Inpatient Treatment: Per TORI Montgomery, pt. remains gravely disabled r/t the severity of his mental illness. A Riese will be filed.
[2019-11-15 08:00] VITALS: BP 104/63
--- NOTE | 2019-11-15 08:37 | NUR ---
Returned Rn Allergy Asher Quintero's phone call (ph# [phone]) and left a message. Left a message on Burt's brother's voicemail requesting a call back (ph# [phone]). Attempted to speak with Burt yesterday regarding discharge planning and he would barely interact with principal technical writer and seemed to just want to nap. JESUS ALBERTO Gallo
--- NOTE | 2019-11-15 13:56 | NUR ---
Spoke with Aircraft Engine Mechanic Supervisor Asher Quintero (ph# [phone]) who reported Burt was reported as missing on October 20. He was last seen in [place] on October 21. He reported Burt normally lives with his uncle, Noah, who reported him missing. Burt has a history of schizophrenia and reportedly stopped taking his medications and became increasingly paranoid and thought drones were watching him. Burt had been working for the same employer as his uncle. Left Ed a message requesting a call back (ph# [phone]). JESUS ALBERTO Gallo
--- NOTE | 2019-11-15 14:00 | NUR ---
Nursing Progress Note: Burt Legal hold: 525 Client on involuntary status for GD Report received from RN With use of SBAR Why are they here: Pt was placed on 5150 for Grave Disability after he was [facility] fully nude. He stated to the police that he has "schizophrenia and is not taking his medications." He also stated, "I'm being followed by the navy and contractors by frequency waves and satellite waves." Assessment What has happened this shift: Patient was asleep at change of shift and up for breakfast. Patient would hardly speak anything to RN today. Patient denies suicidal and homicidal ideation. Patient also shakes his head no about hearing voices but often appears to be responding to internal stimuli. Patient took a couple of naps today. Patient appeared to be ramping up as patient was pacing fast up and down the halls. Patient was offered a shower and that seemed to calm patient. Dr Major is awaiting [address] a Krishan on patient so patient will take medications which comes up on 11/17. S/I, H/I: Denies A/VH: Denies, appears to be responding to internal stimuli. Sleep: several naps today ADL's: Patient took shower today Group attendance: No groups related to COVID-19 Were meds taken: None ordered Any med S/E: N/A Mental Status Exam Appearance: tenorio scruffy. Appropriately clean and dressed. Eye contact: Poor Behavior: Resistive to care, guarded, and withdrawn Speech: poverty of speech Mood: Guarded Affect: Flat Thought process: Circumstantial with poverty of thought Thought Content: Probably ongoing paranoid delusions Cognition: A&O X3 (not to why here) Insight: Poor Judgment: Poor Interventions PRN's used: None Therapeutic interventions: Ensured contract for safety, maintained a safe and therapeutic environment, provided clear and simple instructions, attempted to reorient to reality, monitored behavior and need for intervention, provided medication education, encouraged independent performance of ADLs and provided redirection as needed, and maintained Q 15 min safety checks. Restraints/seclusion/emergency medication: 11/12 At 1505 patient was placed in restraints and chemically sedated. Justification of Continued Inpatient Treatment: Per TORI Montgomery, pt. remains gravely disabled r/t the severity of his mental illness. A Riese will be filed. Addendum: 11/15/19 at 1501 by Adrianna Cordero RN Patient's sister Beth Called from [facility]. [phone]. RN received okay to speak to sister from patient. RN explained [id number] and Krishan hearing. Patient to go back to [place] after improvement.
[2019-11-15] MEDS: OLANZapine 5mg rapidly disint. tablet PO SCH (20:03)
[2019-11-15 20:08] VITALS: BP 110/87
--- NOTE | 2019-11-15 22:47 | NUR ---
Nursing Progress Note: Burt Legal hold: 5249 Client on involuntary status for GD Report received from Rebecca SEVILLA With use of SBAR Why are they here: Pt was placed on 5150 for Grave Disability after he was found running down [facility] [place] fully nude. He stated to the police that he has "schizophrenia and is not taking his medications." He also stated, "I'm being followed by the navy and contractors by frequency waves and satellite waves." Assessment What has happened this shift: Pt was up and waking the halls with out engaging anyone. Latter he argued with the charge nurse about meds.Pt said he would take medication provided we give him a form stating he could go home, Charge nurse told him to talk with his nurse. He approuched this comic writer about meds. I told him he is scheduled to take Zyprexa. He agreed and took his meds. S/I, H/I: Denies A/VH: Denies, appears to be responding to internal stimuli. Sleep: several naps today ADL's: Patient took shower today Group attendance: No groups related to COVID-19 Were meds taken: None ordered Any med S/E: N/A Mental Status Exam Appearance: tenorio scruffy. Appropriately clean and dressed. Eye contact: Poor Behavior: Resistive to care, guarded, and withdrawn Speech: poverty of speech Mood: Guarded Affect: Flat Thought process: Circumstantial with poverty of thought Thought Content: Probably ongoing paranoid delusions Cognition: A&O X3 (not to why here) Insight: Poor Judgment: Poor Interventions PRN's used: None Therapeutic interventions: Ensured contract for safety, maintained a safe and therapeutic environment, provided clear and simple instructions, attempted to reorient to reality, monitored behavior and need for intervention, provided medication education, encouraged independent performance of ADLs and provided redirection as needed, and maintained Q 15 min safety checks. Restraints/seclusion/emergency medication: 11/12 At 1505 patient was placed in restraints and chemically sedated. Justification of Continued Inpatient Treatment: Per TORI Montgomery, pt. remains gravely disabled r/t the severity of his mental illness. A Riese will be filed.
[2019-11-16 08:00] VITALS: BP 99/66
--- NOTE | 2019-11-16 10:18 | NUR ---
Reassessment: Great appetite, Pt PO 100% avg regular diet meeting needs. Bedscale weight is stable. No nutrition problem. Recommendations: 1) Continue regular diet 2) Bowel care as needed 3) Wt per rx Addendum: 11/16/19 at [address] Amended: Links added.
--- NOTE | 2019-11-16 13:48 | NUR ---
Nursing Progress Note: Burt Legal hold: 5250 Client on involuntary status for GD Report received from RN With use of SBAR Why are they here: Pt was placed on 0 for Grave Disability after he was found running down [facility] [place] fully nude. He stated to the police that he has "schizophrenia and is not taking his medications." He also stated, "I'm being followed by the navy and contractors by frequency waves and satellite waves." Assessment What has happened this shift: Patient was asleep at change of shift and up for breakfast in his room. Patient was avoiding eye contact with the RN and does not want to speak. Patient denies suicidal, homicidal ideation. Patient denies hearing voices but appears to be responding to internal stimuli. RN overheard patient speaking on the phone to his sister in he sanches and was quite talkative. Patient told his sister that he is being held against his will. Patient to be riesed on Thursday. S/I, H/I: Denies A/VH: Denies, appears to be responding to internal stimuli. Sleep: several naps today ADL's: Patient took shower today Group attendance: No groups related to COVID-19 Were meds taken: None ordered Any med S/E: N/A Mental Status Exam Appearance: tenorio scruffy. Appropriately clean and dressed. Eye contact: Poor Behavior: Resistive to care, guarded, and withdrawn Speech: poverty of speech Mood: Guarded Affect: Flat Thought process: Circumstantial with poverty of thought Thought Content: Probably ongoing paranoid delusions Cognition: A&O X3 (not to why here) Insight: Poor Judgment: Poor Interventions PRN's used: None Therapeutic interventions: Ensured contract for safety, maintained a safe and therapeutic environment, provided clear and simple instructions, attempted to reorient to reality, monitored behavior and need for intervention, provided medication education, encouraged independent performance of ADLs and provided redirection as needed, and maintained Q 15 min safety checks. Restraints/seclusion/emergency medication: 11/12 At 1505 patient was placed in restraints and chemically sedated. Justification of Continued Inpatient Treatment: Per TORI Montgomery, pt. remains gravely disabled r/t the severity of his mental illness. A Riese will be filed.
[2019-11-16] MEDS: OLANZapine 5mg rapidly disint. tablet PO SCH (20:26)
[2019-11-16 21:05] VITALS: BP 97/76
--- NOTE | 2019-11-17 00:12 | NUR ---
Nursing Progress Note: Burt Hernandez Legal hold: 5249 Client on involuntary status for GD Report received from RN with use of SBAR Why they are here: Pt was placed on 5150 for Grave Disability after he was found running down [facility] fully nude. He stated to the police that he has "schizophrenia and is not taking his medications." He also stated, "I'm being followed by the navy and contractors by frequency waves and satellite waves." Assessment What has happened this shift: Patient was watching TV at shift change. On assessment patient stated he will just take whatever the doctor ordered for medications. Pt denies SI, HI, V & AH. Pt. stated he has never heard voices ever, I dont know why they ask me that. Pt. likes to pace the floor for several hours. During interview, while standing, shifts his weight back & forth. Pt. gestures with a hand seeming to respond to internal stimuli. Pt avoids eye contact during conversation. Pt was on phone. S/I, H/I: Denies A/VH: Denies, appears to be responding to internal stimuli. Sleep: several naps today ADL's: Patient took shower today Group attendance: No groups related to COVID-19 Were meds taken: Zyprexa Any med S/E: N/A Mental Status Exam Appearance: tenorio scruffy. Appropriately clean and dressed. Eye contact: Poor Behavior: Cooperative overall Speech: poverty of speech Mood: Guarded Affect: Flat Thought process: Circumstantial with poverty of thought Thought Content: Probably ongoing paranoid delusions Cognition: A&O X3 (not to why here) Insight: Poor Judgment: Poor Interventions PRN's used: None Therapeutic interventions: Ensured contract for safety, maintained a safe and therapeutic environment, provided clear and simple instructions, attempted to reorient to reality, monitored behavior and need for intervention, provided medication education, encouraged independent performance of ADLs and provided redirection as needed, and maintained Q 15 min safety checks. Restraints/seclusion/emergency medication: 11/12 At 1505 patient was placed in restraints and chemically sedated. Justification of Continued Inpatient Treatment: Per TORI Montgomery, pt. remains gravely disabled r/t the severity of his mental illness. A Riese will be filed.
[2019-11-17 08:00] VITALS: BP 113/57
--- NOTE | 2019-11-17 08:14 | NUR ---
PHONE CALL W/UNCLE Spoke with Burt's uncle, Ed (ph# [phone]), who reported Burt is welcome to return to his home in [place]. He reported his brother, Jayden, may be willing to come steel pickler Burt when he is ready of discharge. He reported he will ask Jayden to call report writer to discuss this. Ed reported Burt was in services at [facility] in [place] (ph# [phone]). Called [facility] and spoke to several different people from different departments. From what I could gather, Burt is not currently open to services, however, could re-start services. Charge Accounts Audit Clerk will call again when he is closer to discharge. JESUS ALBERTO Gallo
--- NOTE | 2019-11-17 13:46 | NUR ---
Nursing Progress Note: Legal hold: 525 for GD Report received from RN with use of SBAR Why are they here: Pt was placed on 5150 for Grave Disability after he was found running down [address] fully nude. He stated to the police that he has "schizophrenia and is not taking his medications." He also stated, "I'm being followed by the navy and contractors by frequency waves and satellite waves." Pt believed that running down the street nude was not an issue. Assessment What has happened this shift: Received Pt in bed sleeping w/o distress at change of shift. Pt was sleeping with his head at the foot of the bed. Pt woke for vitals and responded minimally to assessment questions. Pt out of bed and pacing halls with headphones on and enjoyed listening to music. He spent time in the sanches playing with a ball and sat and watched TV in community room. He is interested in immediate needs, otherwise he continues to communicate minimally with staff or others and did not have any scheduled medication this shift. S/I, H/I: Denies A/VH: Denies but observed to be responding to IS ADL's: Independent Groups: N/A Were meds taken: No Any med S/E: N/A Mental Status Exam Appearance: Casual Eye contact: Fair Behavior: Guarded Speech: Clear, Minimal Mood: Paranoid Affect: Flat Thought process: Linear Thought Content: TV ,snacks Cognition: A&Ox3 Insight: Poor Judgment: Poor Interventions PRN's used: None Therapeutic interventions: 1:1 assessment to establish rapport and gain understanding of pt's thoughts and support system, physical assessment, Offered medications Blisters noted to bilateral feet. Blister on right foot cleansed and bandaged and socks applied. pt appears to not like wearing socks. Restraints/seclusion/emergency medication: N/A Justification of Continued Inpatient Treatment: The patient is unable to formulate a realistic plan for food, halfway or clothing at this time. Pt does not believe he is experiencing a crisis r/t to his thought disorder. He presents as being unable to navigate the homeless services provided in the [facility]
--- NOTE | 2019-11-17 15:13 | NUR ---
1:1 with Burt Met with Burt to discuss discharge planning and assess his current functioning. Burt reported he wants to return to [place], [place], and live with his uncle. He presented as paranoid and suspicious. He reported drones have been spying on him and he reported he told police and they would not "confirm nor deny" that drones were spying on him. He reported they followed [facility] to the [facility] as well. He was grandiose and stated the drones are spying on him because, "I'm an interesting amber". He reported he has $4000 and believes he has multiple stimulus checks waiting for him at his mom's house. Tire Finisher has observed Burt to be attending to internal stimuli as he walks the halls. He appeared to have little insight into his mental illness. Burt reported he can take the [facility] [employer] bus back to [place]. At this time it appears as if he would have difficulty taking the bus all the way to [place] due to his paranoid delusions that drones are following him and spying on him. This was the reason why he left [place] to begin with. Tire Finisher will call [facility] in [place] to coordinate follow up care when he is ready to discharge. JESUS ALBERTO Gallo
--- NOTE | 2019-11-17 16:06 | NUR ---
Phone call with Jeanne at [employer] [facility] (ph# [phone] ext [phone]). She reported Burt was previously in the [facility] program and at one point was on a 90 day agreement to take medications. She reported he had been on clozaril at one point and stopped taking it due to non-compliance with blood draws. Discussed PENALOZA as a possibility due to non-compliance. She reported they would like to see him on Invega Sustenna and can continue it when he returns to [place]. Vehicle Technician will pass along this message to TORI Otero. JESUS ALBERTO Gallo
[2019-11-17 19:24] VITALS: BP 131/112
[2019-11-17] MEDS ORDERED: OLANZapine 5mg rapidly disint. tablet PO SCH (21:00)
[2019-11-17] MEDS: PALIPERIDONE 3 MG TAB.ER.24 PO SCH (21:14)
--- NOTE | 2019-11-18 04:43 | NUR ---
Nursing Progress Note: Legal hold: 5249 Client on involuntary status for GD Report received from DI Valenzuela with use of SBAR Why they are here: Pt was placed on 5150 for Grave Disability after he was found running down [facility] [place] fully nude. He stated to the police that he has "schizophrenia and is not taking his medications." He also stated, "I'm being followed by the navy and contractors by frequency waves and satellite waves." Assessment What has happened this shift: Patient on the unit pacing the sanches while listening to headphones at the beginning of shift. Pleasant and cooperative with all care; compliant with medication this shift. Patient started on Paliperidone PO with no ASE observed or reported. Patient denies SI, HI, A/VH and does not appear to be responding to internal stimuli this shift. Patient showered this shift and put clean unit scrubs on. Patient appeared to have difficulty sleeping this shift AEB continuous pacing while listening to headphones. Patient keeps to himself and does not disturb peers. Later observed resting without s/s of distress. S/I, H/I: Denies A/VH: Denies Sleep: Refer to sleep assessment ADL's: Showered this shift Group attendance: No groups this shift Were meds taken: Yes Any med S/E: None observed or reported Mental Status Exam Appearance: Showered, clean unit scrubs. Eye contact: Poor Behavior: Cooperative, isolative to self Speech: Minimal, clear Mood: Guarded Affect: Flat Thought process: Poverty of thought Thought Content: Unable to assess Cognition: A&O X3 Insight: Poor Judgment: Poor Interventions PRN's used: None Therapeutic interventions: Ensured contract for safety, maintained a safe and therapeutic environment, provided clear and simple instructions, attempted to reorient to reality, monitored behavior and need for intervention, provided medication education, encouraged independent performance of ADLs and provided redirection as needed, and maintained Q 15 min safety checks. Restraints/seclusion/emergency medication: None Justification of Continued Inpatient Treatment: Per TORI Montgomery, pt. remains gravely disabled r/t the severity of his mental illness.
[2019-11-18 07:30] VITALS: BP 116/60
[2019-11-18] MEDS ORDERED: paliperidone palmitate inj 234 MG/1.5 ML SYRINGE IM ONE (15:45)
--- NOTE | 2019-11-18 18:00 | NUR ---
Nursing Progress Note: Legal hold: 5249 Client on involuntary status for GD Report received from DI Valenzuela with use of SBAR Why they are here: Pt was placed on 5150 for Grave Disability after he was [facility] [place] fully nude. He stated to the police that he has "schizophrenia and is not taking his medications." He also stated, "I'm being followed by the navy and contractors by frequency waves and satellite waves." Assessment What has happened this shift: Pt. asleep at start of shift. Pt. awake for breakfast and ate all meals in his room. After breakfast pt. went back to bed. 1:1 done at bedside. Pt. denies SI/HI, A/V hallucinations. When asked how he is pt. responds, "good". Pt. offers minimal information during interview. Pt. isolates to room majority of the day. Pt. seen in hallways pacing while listening to headphones at times. Invega 234mg injection ordered and pt. wanted to argue with his provider about side effects of medication. Pt. eventually agreed to receive medication. S/I, H/I: Denies A/VH: Denies Sleep: Pt. napped most of the AM. ADL's: Showered this shift. Group attendance: No groups this shift Were meds taken: Yes Any med S/E: Denies Mental Status Exam Appearance: Showered, clean in unit scrubs. Eye contact: Poor Behavior: Cooperative, isolative to self Speech: Minimal, clear Mood: Guarded Affect: Flat Thought process: Poverty of thought Thought Content: Difficult to assess due to poverty of thought. Cognition: A&O X3 Insight: Poor Judgment: Poor Interventions PRN's used: None Therapeutic interventions: Ensured contract for safety, maintained a safe and therapeutic environment, provided clear and simple instructions, attempted to reorient to reality, monitored behavior and need for intervention, provided medication education, encouraged independent performance of ADLs and provided redirection as needed, and maintained Q 15 min safety checks. Restraints/seclusion/emergency medication: None Justification of Continued Inpatient Treatment: Per TORI Montgomery, pt. remains gravely disabled r/t the severity of his mental illness.
[2019-11-18 19:00] VITALS: BP 117/77
[2019-11-18] MEDS: PALIPERIDONE 3 MG TAB.ER.24 PO SCH (20:17)
--- NOTE | 2019-11-19 03:45 | NUR ---
Nursing Progress Note: Legal hold: 5269 Client on involuntary status for GD Report received from DI Valenzuela with use of SBAR Why they are here: Pt was placed on 5150 for Grave Disability after he was [facility] fully [facility]. He stated to the police that he has "schizophrenia and is not taking his medications." He also stated, "I'm being followed by the navy and contractors by frequency waves and satellite waves." Assessment What has happened this shift: Patient visible on the unit at the beginning of shift. Pleasant and cooperative with all care; compliant with medication without complication. No PRNs needed this shift. Patient received Invega Sustenna previous shift and no ASE observed or reported. Patient denies SI, HI, A/VH and does not appear to be responding to internal stimuli this shift. When conventional underwriter questioned him about discharge planning he stated, "take all my meds now" and proceeded to talk about possibly going back to his family "for a little while" upon discharge and later wishes to go to [facility] where he knows friends that he believes are able to get him a job and housing. Patient showered this shift and clean scrubs. Does not appear to have difficulty sleeping this shift. S/I, H/I: Denies A/VH: Denies Sleep: Refer to sleep assessment ADL's: Showered this shift Group attendance: No groups this shift Were meds taken: Yes Any med S/E: None observed or reported Mental Status Exam Appearance: Showered, clean unit scrubs. Eye contact: Poor Behavior: Cooperative, walking the sanches and sitting in rec room, isolative to self Speech: Minimal, clear, steady rate/rhythm Mood: Guarded Affect: Flat Thought process: Poverty of thought Thought Content: Discharge plan Cognition: A&O X3 Insight: Poor Judgment: Poor Interventions PRN's used: None Therapeutic interventions: Ensured contract for safety, maintained a safe and therapeutic environment, provided clear and simple instructions, attempted to reorient to reality, monitored behavior and need for intervention, provided medication education, encouraged independent performance of ADLs and provided redirection as needed, and maintained Q 15 min safety checks. Restraints/seclusion/emergency medication: None Justification of Continued Inpatient Treatment: Per TORI Montgomery, pt. remains gravely disabled r/t the severity of his mental illness.
[2019-11-19 07:30] VITALS: BP 122/86
--- NOTE | 2019-11-19 17:50 | NUR ---
Nursing Progress Note: Legal hold: 5249 Client on involuntary status for GD Report received from Judi Weber RN with use of SBAR Why they are here: Pt was placed on 5150 for Grave Disability after he [facility] [place] fully [facility]. He stated to the police that he has "schizophrenia and is not taking his medications." He also stated, "I'm being followed by the navy and contractors by frequency waves and satellite waves." Assessment What has happened this shift: Pt. asleep at start of shift. Pt. awake for breakfast and ate all meals in his room. After breakfast pt. went back to bed. 1:1 done at bedside. Pt. denies SI/HI, A/V hallucinations. When asked how he is pt. responds, "good". Pt. offers minimal information during interview, responding to questions with "yes" and "no" answers. Pt. seen pacing in the hallways, watching movies in community room and listen to headphones. Pt. seen bobbing his head at times, even when not listening to the headphones. Pt. seen conversing with other patients, talking about music. S/I, H/I: Denies A/VH: Denies Sleep: Pt. did not nap on day shift. ADL's: Showered this shift. Group attendance: No Groups at this time. Were meds taken: Yes Any med S/E: Non reported or observed. Mental Status Exam Appearance: Showered, clean street clothes. Eye contact: Poor Behavior: Cooperative, withdrawn Speech: Minimal, clear Mood: Guarded Affect: Flat Thought process: Poverty of thought Thought Content: Difficult to assess due to poverty of thought. Cognition: A&O X3 Insight: Poor Judgment: Poor Interventions PRN's used: None Therapeutic interventions: Ensured contract for safety, maintained a safe and therapeutic environment, provided clear and simple instructions, attempted to reorient to reality, monitored behavior and need for intervention, provided medication education, encouraged independent performance of ADLs and provided redirection as needed, and maintained Q 15 min safety checks. Restraints/seclusion/emergency medication: None Justification of Continued Inpatient Treatment: Per TORI Montgomery, pt. remains gravely disabled r/t the severity of his mental illness.
[2019-11-19] MEDS: lactose-reduced food (Ensure High Protein) 237ml bottle PO SCH (18:00)
[2019-11-19 19:00] VITALS: BP 132/86
[2019-11-19] MEDS: PALIPERIDONE 3 MG TAB.ER.24 PO SCH (20:36)
--- NOTE | 2019-11-20 05:06 | NUR ---
Nursing Progress Note: Legal hold: 5269 Client on involuntary status for GD Report received from DI Valenzuela with use of SBAR Why they are here: Pt was placed on 5150 for Grave Disability after he was found running down [facility] fully nude. He stated to the police that he has "schizophrenia and is not taking his medications." He also stated, "I'm being followed by the navy and contractors by frequency waves and satellite waves." Assessment What has happened this shift: Patient active on the unit at the beginning of shift. Pleasant and cooperative with all care; compliant with medication. Patient denies SI, HI, A/VH. Patient continues to explain d/c to family and "thinking about moving to [place] with a friend and crash on their couch until I find my own place." Patient c/o pain on the soles of bilateral feet. "Tender and stinging" with applied pressure. Patient's feet are flaking but no visible soars or lacerations observed. PRN Tylenol provided with some relief noted. 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 Patient appeared to have difficulty sleeping this AEB continuous pacing in the sanches throughout the shift. S/I, H/I: Denies A/VH: Denies Sleep: Refer to sleep assessment ADL's: Independent Group attendance: No groups this shift Were meds taken: Yes Any med S/E: None observed or reported Mental Status Exam Appearance: Disheveled, green unit scrubs with bottoms pulling down and exposing buttocks often. Eye contact: Fair Behavior: Cooperative, walking the sanches and sitting in rec room, listening to headphones Speech: Minimal, clear, steady rate/rhythm Mood: "Good" Affect: Constricted Thought process: Poverty of thought Thought Content: Discharge plan Cognition: A&O X3 Insight: Poor Judgment: Poor Interventions PRN's used: Tylenol Therapeutic interventions: Ensured contract for safety, maintained a safe and therapeutic environment, provided clear and simple instructions, attempted to reorient to reality, monitored behavior and need for intervention, provided medication education, encouraged independent performance of ADLs and provided redirection as needed, and maintained Q 15 min safety checks. Restraints/seclusion/emergency medication: None Justification of Continued Inpatient Treatment: Per TORI Montgomery, pt. remains gravely disabled r/t the severity of his mental illness.
[2019-11-20 08:00] VITALS: BP 122/64
--- NOTE | 2019-11-20 09:46 | NUR ---
F/u: Pt ordered ensure high protein QID in EMR; AYLEEN d/w RN recommending TIDWM given 100% PO meals and meeting needs. Dietary notified. Addendum: 11/20/19 at [address] Amended: Links added. Addendum: 11/22/19 at [address] CORRECTION: Current [employer] order actually ensure high protein at dinners
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
[2019-11-20] MEDS: lactose-reduced food (Ensure High Protein) 237ml bottle PO SCH ×2 (18:00→21:03)
[2019-11-20 20:00] VITALS: BP 135/78
[2019-11-20] MEDS: PALIPERIDONE 3 MG TAB.ER.24 PO SCH (21:09)
--- NOTE | 2019-11-21 00:17 | NUR ---
Nursing Progress Note: Legal hold: 5249 Client on involuntary status for GD Report received from DI Valenzuela with use of SBAR Why they are here: Pt was placed on 5150 for Grave Disability after he was found running down [address] fully nude. He stated to the police that he has "schizophrenia and is not taking his medications." He also stated, "I'm being followed by the navy and contractors by frequency waves and satellite waves." Assessment What has happened this shift: Pt. Sitting in Rec room with other pts at start of shift. Pt bouncing and tossing a rubber ball in air. Pt sits in the far corner of room by window not interacting with other pts who are watching TV. At times pt rocking back and forth. Guarded, minimal response to greetings or questions. Pleasant and cooperative with care took all meds. 23:30 pt asked for crackers declined any medications for sleep. Pt asleep within an hour. S/I, H/I: Denies A/VH: Denies Sleep: asleep at this time ADL's: Showered this AM. Group attendance: No Groups at this time. Were meds taken: Yes Any med S/E: Non reported or observed. Mental Status Exam Appearance: clean street clothes. Eye contact: Poor Behavior: Cooperative, withdrawn Speech: Minimal, clear Mood: Guarded Affect: Flat Thought process: very little verbalization Thought Content: unknown Cognition: A&O X3 Insight: Poor Judgment: Poor Interventions PRN's used: None Therapeutic interventions: Ensured contract for safety, maintained a safe and therapeutic environment, provided clear and simple instructions, attempted to reorient to reality, monitored behavior and need for intervention, provided medication education, encouraged independent performance of ADLs and provided redirection as needed, and maintained Q 15 min safety checks. Restraints/seclusion/emergency medication: None Justification of Continued Inpatient Treatment: Pt. remains gravely disabled r/t the severity of his mental illness. Pt. requires interruption of current crisis, medication adjustments, and a safe and therapeutic environment.
[2019-11-21 08:53] VITALS: BP 129/79
--- NOTE | 2019-11-21 13:31 | NUR ---
Nursing Progress Note: Legal hold: 5249 Client on involuntary status for GD Report received from DI Arboleda with use of SBAR Why they are here: Pt was placed on 5150 for Grave Disability after he was found running down [facility] [place] fully nude. He stated to the police that he has "schizophrenia and is not taking his medications." He also stated, "I'm being followed by the navy and contractors by frequency waves and satellite waves." Assessment What has happened this shift: Patient was asleep a change of shift and up for breakfast in his room. Patient was very quiet today. States he is doing fine but does not elaborated. Patient has minimal speech. Patient paces the halls but does not engage with peers or staff. Patient poor eye contact and does not want to be bothered. Patient does deny suicidal/homicidal ideation. Patient denies hearing voices. S/I, H/I: Denies A/VH: Denies Sleep: Patient laid down for a little while today/ ADL's: Independent Group attendance: No Groups at this time. Were meds taken: Yes Any med S/E: Non reported or observed. Mental Status Exam Appearance: Overweight. Did not shower today, clean street clothes. Eye contact: Poor Behavior: Cooperative, withdrawn Speech: Minimal, clear Mood: Guarded Affect: Flat Thought process: grandiosity Thought Content: delusion of grandeur Cognition: A&O X3 Insight: Poor Judgment: Poor Interventions PRN's used: None Therapeutic interventions: Ensured contract for safety, maintained a safe and therapeutic environment, provided clear and simple instructions, attempted to reorient to reality, monitored behavior and need for intervention, provided medication education, encouraged independent performance of ADLs and provided redirection as needed, and maintained Q 15 min safety checks. Restraints/seclusion/emergency medication: None Justification of Continued Inpatient Treatment: Per TORI Montgomery, pt. remains gravely disabled r/t the severity of his mental illness. Addendum: 11/21/19 at 1339 by Adrianna Cordero RN No scheduled meds on day shift Addendum: 11/21/19 at 1704 by Adrianna Cordero RN Patient went to court today and was angry and called the court a "Kangaroo Court". Patient did not win his court case. When patient speaking on the phone to his advocate, DI overheard patient yelling at them telling advocate that "you are not saying anything that is going to help me." After court patient called his mom and said "they are keeping me for 27 more days bacause they don't know what the fuck they are doing".
--- NOTE | 2019-11-21 14:53 | NUR ---
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 Spoke to Dr Major who indicated Burt may be ready for discharge by or Thu after he gets his 2nd Invega injection. Called Beth back and apprised her of this. 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 JESUS ALBERTO Gallo
[2019-11-21 19:00] VITALS: BP 114/78
[2019-11-21] MEDS: PALIPERIDONE 3 MG TAB.ER.24 PO SCH (21:29)
[2019-11-21] MEDS ORDERED: temazepam 15mg capsule PO PRN (23:00)
--- NOTE | 2019-11-22 04:11 | NUR ---
RN PROGRESS NOTE: LEGAL HOLD: 5250 for GD. Report received from Nicolas Ramirez RN with use of SBAR REASON FOR ADMISSION: Client has hx of schizophrenia. Client stopped taking his meds and decompensated. [place]. ASSESSMENT: THIS SHIFT: Client does not engage with others. Paced in sanches and appeared to be responding to internal stimuli, gestured with hands and occasionally talked to unseen others. Client took scheduled meds but refused PRN Temazepam. Difficulty falling asleep. Flat affect. Poverty of speech. S/I, H/I: Denies A/VH: Denies Sleep: Difficulty falling asleep, reported sleeping alot on day shift. ADL's: Independent Group attendance: No Groups at this time. Were meds taken: Yes, refused PRN. Any med S/E: Non reported or observed. MSE: Appearance: Appropriate Eye contact: Poor Behavior: Avoidant, does not engage with others. Speech: Minimal, clear Mood: Guarded Affect: Flat Thought process: Does not discuss thoughts. Cognition: A&O X3 Insight: Poor Judgment: Poor INTERVENTIONS: PRN's used: None Therapeutic interventions: Safe, therapeutic environment. Meds. Restraints/seclusion/emergency medication: None Justification of Continued Inpatient Treatment: Client lacks insight into his need for medications and therapeutic interventions. Client is gravely disabled and would be unable to care for self if discharged.
[2019-11-22] MEDS ORDERED: paliperidone palmitate 156 mg/ml inj.**IM only IM ONE (08:00)
--- NOTE | 2019-11-22 12:24 | NUR ---
Correction: Pt ordered ensure high protein w/ dinners in EMR per [employer]. Dietary notified. Reassessment: Great appetite, Pt PO 100% avg regular diet meeting needs. Bedscale weight is stable. No nutrition problem. Recommendations: 1) Continue regular diet 2) ensure high protein w/ dinners per [employer] 3) Bowel care as needed 4) Wt per rx Addendum: 11/22/19 at [address] Amended: Links added. Addendum: 11/22/19 at [address] Correction: Per [place]; ensure high protein w/ dinners. Dietary notified. Reassessment: Great appetite, Pt PO 100% avg regular diet meeting needs. Bedscale weight is stable. No nutrition problem. Recommendations: 1) Continue regular diet 2) ensure high protein w/ dinners per [place] 3) Bowel care as needed 4) Wt per rx
--- NOTE | 2019-11-22 12:36 | NUR ---
Reassessment: Pt continues with 100% PO intake of meals and ONS QDD. D/w dietary to send double protein BIDBL for additional satiety. [facility] 11/20. Will continue to follow. Recommendations: 1) Continue regular diet 2) Ensure High Protein with dinners per [place] 3) Double eggs q breakfast, double meat q lunch 4) Bowel care as needed 5) Wt per rx Addendum: 11/22/19 at [address] Amended: Links added.
--- NOTE | 2019-11-22 12:38 | NUR ---
RN PROGRESS NOTE: LEGAL HOLD: 5250 for GD. Report received from HUBERT Sorto with use of SBAR REASON FOR ADMISSION: Client has hx of schizophrenia. Client stopped taking his meds and decompensated. He was [place]. ASSESSMENT: THIS SHIFT: Patient sleeping at change of shift and up for breakfast. Patient avoids contact with staff and peers. RN spoke with patient when giving him his Ivega Sustaina Injection. Patient appears to be responding to internal stimuli but appears better. Patient denies suicidal/homicidal ideation and denies audio/visual hallucinations. RN explained to patient that he will probably be discharged at the end of the week. Patient stated in a full sentence "that is confusing because of the court hearing saying I have 27 more days." RN explained that the 27 days was the most we could keep him here and the doctor feels he will be able to discharge at the end of the week. Patient appeared content with that explanation. RN was sitting in the TV room and patient asked to watch a documentary. RN got a staff member who knows who to work the T.V. let him watch what he wants to watch. Patient was calm today but did pace up and down the halls. Patient was seen in the Community moving to the beat of the music. S/I, H/I: Denies A/VH: Denies Sleep:morning nap. ADL's: Independent Group attendance: No Groups at this time. Were meds taken: Yes Any med S/E: None reported or observed. MSE: Appearance: Appropriate Eye contact: Poor Behavior: Isolative Speech: Minimal, clear Mood: Guarded Affect: Flat Thought process: Does not discuss thoughts. Cognition: A&O X3 Insight: Poor Judgment: Poor INTERVENTIONS: PRN's used: None Therapeutic interventions: Safe, therapeutic environment. Meds. Restraints/seclusion/emergency medication: None Justification of Continued Inpatient Treatment: Client lacks insight into his need for medications and therapeutic interventions. Client is gravely disabled and would be unable to care for self if discharged.
--- NOTE | 2019-11-22 15:01 | NUR ---
DISCHARGE PLANNING Burt's sister, Beth (ph# [phone]), called to report she and his mother are planning on driving from [place] and arriving [place] AM to pecan picker [place]urt and return to [place]. Informed her he should be ready for discharge. JESUS ALBERTO Gallo
[2019-11-22] MEDS: lactose-reduced food (Ensure High Protein) 237ml bottle PO SCH (18:22)
[2019-11-22 19:00] VITALS: BP 117/62
[2019-11-22] MEDS: PALIPERIDONE 3 MG TAB.ER.24 PO SCH (21:00)
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
[2019-11-23 08:37] LABS: BASOPHILS % (AUTO) 0.4 % (0-1); EOSINOPHILS # (AUTO) 0.1 X10'3 (0-0.9); EOSINOPHILS % (AUTO) 1.9 % (0-6); HEMATOCRIT 47.5 % (42.0-52.0); HEMOGLOBIN 15.8 g/dl (14.0-17.9); LYMPHOCYTES # (AUTO) 1.8 X10'3 (1.1-4.8); LYMPHOCYTES % (AUTO) 26.2 % (21-51); MEAN CORPUSCULAR HEMOGLOBIN 27.2 PG (27.0-31.0); MEAN CORPUSCULAR HGB CONC 33.2 g/dL (33.0-36.5); MEAN CORPUSCULAR VOLUME 81.8 FL (78-98); MONOCYTES # (AUTO) 0.7 X10'3 (0-0.9); MONOCYTES % (AUTO) 9.6 % (2-12); NEUTROPHILS # (AUTO) 4.3 X10'3 (1.8-7.7); NEUTROPHILS % (AUTO) 61.9 % (42-75); PLATELET COUNT 277 X10'3 (140-440); RED BLOOD COUNT 5.81 X10'6 (4.70-6.10); RED CELL DISTRIBUTION WIDTH 13.6 % (11.5-14.5); WHITE BLOOD COUNT 6.9 X10'3 (4.5-11.0)
--- NOTE | 2019-11-23 14:11 | NUR ---
RN PROGRESS NOTE: LEGAL HOLD: 5250 for GD. Report received from HUBERT Sorto with use of SBAR REASON FOR ADMISSION: Client has hx of schizophrenia. Client stopped taking his meds and decompensated. He was [place]. ASSESSMENT: THIS SHIFT: Patient sleeping at change of shift and up for breakfast. Patient avoids contact with staff and peers. Patient paces and watches T.V. Patient engages with RN to change the T.V. channel but barely speaks about anything difficult. Patient denies suicidal/homicidal ideation. Patient denies hearing voices but does appear to respond to internal stimuli but it also appears to be less than before. Patient is scheduled to leave on Thursday morning with mom and sister. Patient is aware. S/I, H/I: Denies A/VH: Denies Sleep:morning nap. ADL's: Independent Group attendance: No Groups at this time. Were meds taken: Yes Any med S/E: None reported or observed. MSE: Appearance: Appropriate Eye contact: Poor Behavior: Isolative Speech: Minimal, clear Mood: Guarded Affect: Flat Thought process: Does not discuss thoughts. Cognition: A&O X3 Insight: Poor Judgment: Poor INTERVENTIONS: PRN's used: None Therapeutic interventions: Safe, therapeutic environment. Meds. Restraints/seclusion/emergency medication: None Justification of Continued Inpatient Treatment: Client lacks insight into his need for medications and therapeutic interventions. Client is gravely disabled and would be unable to care for self if discharged.
[2019-11-23] MEDS: lactose-reduced food (Ensure High Protein) 237ml bottle PO SCH (18:08)
[2019-11-23 20:00] VITALS: BP 118/82
[2019-11-23] MEDS: PALIPERIDONE 3 MG TAB.ER.24 PO SCH (20:28)
--- NOTE | 2019-11-23 23:02 | NUR ---
Nursing Progress Note: Legal hold: 5270 Client is on an involuntary hold for being gravely disabled Report received from Adrianna SEVILLA with use of SBAR format Why are they here: Client has hx of schizophrenia. Client stopped taking his meds and decompensated. He [place]. Assessment What has happened this shift: The patient has been observed pacing back and forth in the hallway. He did go to his room when approached for the evening assessment. He presented as cooperative during the assessment. He made no delusional comments. He denies A/V hallucinations. He does appear internally preoccupied while pacing in the hallway and was observed by staff whispering to himself. He is aware that he is going to be going home soon. He stated that his mood was "okay" He socializes minimally with others. He did take his evening medications but denies that he needs medications. He denies having a mental illness other than ADHD. During the evening assessment he was rocking back and forth. He denied anxiety. He stated that he has been sleeping good here on the unit. S/I, H/I: denies A/VH: denies but appears internally preoccupied ADL's: Appeared disheveled with his hair uncombed. Reports last shower was yesterday Were meds taken: The patient was medication compliant Any med S/E the patient denies medication side effects. Mental Status Exam Appearance: The patient is dressed appropriately for the unit but appeared disheveled Eye contact: Gave direct eye contact during the evening assessment Behavior: The patient is withdrawn but was pleasant on approach Speech: Appropriate responses to the assessment questions. He has been cooperative and has had no behavioral issues. Mood: The patient described his mood as "okay" Affect: blunted Thought process: The patient gave logical and appropriate responses to the assessment questions. He denies voices. Thought Content: The patient did not make any delusional statements during the evening assessment. Cognition: Alert and oriented Insight: poor Judgment: impaired Interventions PRN's used: NO. Therapeutic interventions: One to one with the patient to assess for continued disordered thought processes. Assessed for medication side effects. Justification of Continued Inpatient Treatment: The patient is not attending to his ADLs. He has very poor insight into his need for treatment.
[2019-11-24 08:00] VITALS: BP 124/70
--- NOTE | 2019-11-24 11:54 | NUR ---
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 They expect to arrive around 8 AM. Will pass on to TORI Otero, to request his discharge get completed today. JESUS ALBERTO Gallo
--- NOTE | 2019-11-24 14:41 | NUR ---
Nursing Progress Note: Legal hold: 527 Client on involuntary status for GD Report received from nurse with use of SBAR: DI Sorto Why are they here: Pt was placed on 5150 for [employer] after he was found running down [address] [place] fully nude. He stated to the police that he has "schizophrenia and is not taking his medications." He also stated, "I'm being followed by the [employer] and contractors by frequency waves and satellite waves." Assessment What has happened this shift: Pt. up pacing in the hallway at the beginning of the shift, and after breakfast laying in bed reporting some fatigue. 1:1 completed at bedside, pt. remains cooperative, however withdrawn and guarded . His eye contact has improved, and he is compliant with physical assessment. No episodes of agitation or increased restlessness exhibited this shift. Pt. denies any A/V/BENDER and no delusional statements made. He reports that he is looking forward to discharging tomorrow with his mother and his sister. When questioned by this software writer in regard to whether he plans to continue to take his mediations, pt. states, "If the doctor prescribes them I will. I also have a medical doctor." Pt. denies any benefits/adverse effects from his current medications, states, "I don't feel any different," however it is noted by this software writer that he appears to be less internally preoccupied. Pt. paces intermittently throughout the shift, will continue to monitor. S/I, H/I: Denies A/VH: Denies, appears to be minimally internally preoccupied at times Sleep: Pt. reports he has been sleeping well, sleep hours are 7.5 ADL's: Independent Group attendance: N/A Were meds taken: None ordered this shift Any med S/E: N/A Mental Status Exam Appearance: Appears slightly disheveled, tenorio scruffy. Appropriately dressed. Eye contact: Fair Behavior: Cooperative, fatigued, restless, guarded, and withdrawn Speech: Soft, responds with minimal 1-2 word answers to questions. Mood: Guarded, however pleasant/cooperative Affect: Constricted Thought process: Poverty of thought Thought Content: Looking forward to discharge tomorrow with family. Possible minimal internal preoccupation. Cognition: A&O X3 (not to why here) Insight: Poor Judgment: Fair Interventions PRN's used: None Therapeutic interventions: Ensured contract for safety, maintained a safe and therapeutic environment, provided clear and simple instructions, monitored behavior and need for intervention, provided positive encouragement, and maintained Q 15 min safety checks. Restraints/seclusion/emergency medication: N/A Justification of Continued Inpatient Treatment: Pt. continues to require a safe and supportive environment. He will discharge tomorrow with his family.
[2019-11-24] MEDS ORDERED: TEMA15CA PO (15:56)
[2019-11-24] MEDS: lactose-reduced food (Ensure High Protein) 237ml bottle PO SCH (17:59)
[2019-11-24] MEDS: PALIPERIDONE 3 MG TAB.ER.24 PO SCH (21:33)
--- NOTE | 2019-11-25 04:20 | NUR ---
Nursing Progress Note: Legal hold: 527 Client on involuntary status for GD Report received from nurse with use of SBAR: DI Fernandez Why are they here: Pt was placed on 5150 for [employer]ve Disability after he was found running down [address] [place] fully nude. He stated to the police that he has "schizophrenia and is not taking his medications." He also stated, "I'm being followed by the [employer] and contractors by frequency waves and satellite waves." Assessment What has happened this shift: Patient laying in bed asleep at the beginning of shift. Pleasant and cooperative with all care; compliant with medication. Patient denies SI, HI, A/VH and no delusional content expressed this shift. Patient expressed looking forward to discharge for next shift. Patient appeared to have some difficulty sleeping; patient self soothes by walking the sanches and using a ball. Patient last Invega Sustenna injection provided 11/21 and next dose due 12/21. S/I, H/I: Denies A/VH: Denies Sleep: Refer to sleep assessment ADL's: Independent Group attendance: N/A Were meds taken: Yes Any med S/E: None observed, no reported Mental Status Exam Appearance: Appears slightly disheveled, tenorio scruffy. Appropriately dressed. Eye contact: Fair Behavior: Cooperative, fatigued, restless, guarded, and withdrawn Speech: Clear, soft, minimal Mood: "Good" Affect: Constricted Thought process: Poverty of thought Thought Content: Looking forward to discharge to family Cognition: A&O X3 (not to why here) Insight: Poor Judgment: Fair Interventions PRN's used: None Therapeutic interventions: Ensured contract for safety, maintained a safe and therapeutic environment, provided clear and simple instructions, monitored behavior and need for intervention, provided positive encouragement, and maintained Q 15 min safety checks. Restraints/seclusion/emergency medication: N/A Justification of Continued Inpatient Treatment: Pt. continues to require a safe and supportive environment. Discharge to family 11/25/2019.
--- NOTE | 2019-11-25 07:45 | NUR ---
Discharge Note: Pt. ambulated off the unit accompanied by roseanne Tuttle at 0745. This video game script writer reviewed discharge packet, medications, and follow-up appointment with pt. and he reported understanding (however refused to sign paperwork). Pt. is able to contract for safety, and denies any M/H s/s. He is being picked up by family who will be taking him with them to [place]. Pt. does not require smoking cessation. He is being sent with a hard-copy of his prescription for Temazepam.
[2019-11-25 08:00] VITALS: BP 138/82
== END 2019-11-25 07:47 | disposition home or self-care (01) | DRG 750 ==
LOC: ADULT MH 21:32
PROVIDERS: ADMIT Psychiatry & Neurology Psychiatry; ATTEND Psychiatry & Neurology Psychiatry
DX: F20.0 Paranoid schizophrenia (principal); F17.210 Nicotine dependence, cigarettes, uncomplicated; F41.9 Anxiety disorder, unspecified; G47.00 Insomnia, unspecified; S90.829A Blister (nonthermal), unspecified foot, initial encounter; X58.XXXA Exposure to other specified factors, initial encounter; Y93.89 Activity, other specified; Y92.89 Other specified places as the place of occurrence of the external cause; Y99.8 Other external cause status
CPT/HCPCS: 36415; 80061; 80164; 83036; 84443; 85025; 87081; 99285; J1200; J1630; J2060